=== PATIENT | male | born 1950 | race African-American/Black ===

== ENCOUNTER 2020-09-15 13:58 | Emergency (ER) | payer MEDICAID, MEDICARE ==
[~2020-09-15] VITALS: Ht 182.9 cm; Wt 72.7 kg
[~2020-09-15 13:58] MED LIST: ACET325T9 PO; AMLO-186 PO; ASPI-482 PO; CARB-183 PO; CLOP75TA PO; CYCL10TA2 PO; Carbidopa/Levodopa PO; FERR325T14 PO; FLUDROCORTISONE ACETATE PO; HYDR-3107 PO; HYDR5TAB11 PO; ISOS30TA68 PO; LEVO500T59 PO; LEVO50TA5 PO; LEVO75TA5 PO; LEVO88TA70 PO; METO-269 PO; METR500T PO; NAPR500T8 PO; OXYC1TAB15 PO; POTA20TA84 PO; TAMS0.4C97 PO; cyclobenzaprine; synthroid
[2020-09-15 14:52] VITALS: BP 147/78
[2020-09-15] MEDS ORDERED: NEOMY/BACITR/POLYMYXIN OINT PACKET. TP ONE (15:00)
[2020-09-15] MEDS ORDERED: CEPHALEXIN 250 MG CAPSULE. PO ONE (15:15)
[2020-09-15] MEDS ORDERED: LIDOCAINE 2%/EPI 1:100,000 20 ML VIAL. INJ ONE (15:15)
[2020-09-15] MEDS ORDERED: DIPH,PERTUSS(ACELL),TET VAC/PF 0.5 ML SYRINGE. VAX IM ONE (15:15)
--- NOTE | 2020-09-15 15:19 | RAD ---
Exam: Right hand 3 views INDICATION: Middle finger injury, concern for fracture TECHNIQUE: Frontal, lateral and oblique views of the right foot Comparisons: None FINDINGS: There is a obliquely oriented fracture through the distal phalanx of the third digit. Mild surroundin g soft tissue swelling. Joint spaces are well-maintained. Bone mineralization is normal. IMPRESSION: Obliquely oriented fracture through the distal phalanx of the third digit. Electronically signed by: Rosalee Osorio MD (09/15/2020 3:17 PM) SCOUT
[2020-09-15] MEDS ORDERED: CEPH500C PO (16:38)
[2020-09-15] MEDS ORDERED: HYDR-2761 PO (16:38)
--- NOTE | 2020-09-15 16:40 | PHYS DOC ---
Past Medical History Past Medical History: CHF, Hypertension, Hypothyroid, Other Additional Past Medical Histor: chronic back pain, head injury Past Surgical History: No Surgical History Smoking Status: Never Smoker Alcohol Use: None Drug Use: None General Adult EDM: Chief Complaint: FINGER INJURY HPI: HPI: Patient is a 70 year old male presents with injury to distal end of right middle finger including nail after accidentally getting finger caught in his truck door while exiting. Reports the door "slammed" on his finger. Injury occurred approximately 1 hour prior to arrival. Patient denies use of blood thinners. Reports bleeding has been controlled with direct pressure on wound. Reports nail is avulsed. Reports last tetanus > 5 years ago. Review of Systems: Review of Systems: Constitutional: Denies fever or chills Musculoskeletal: Denies back pain ; reports pain and deformity to right middle finger Integument: Reports laceration to distal end of right middle finger with nail avulsion Neurologic: Denies headache, focal weakness or sensory changes Complete systems were reviewed and found to be within normal limits, except as documented in this note. Heart Score: C/O Chest Pain: N/A Current Medications: Current Medications Medications (Trade) Dose Ordered Sig/Theresa Start Time Stop Time Status Last Admin Dose Admin Cephalexin HCl (Keflex) 500 mg 1X ONCE 09/15/20 15:15 09/15/20 15:16 DC 09/15/20 15:24 500 MG Diphtheria/ Tetanus/Acell Pertussis (ADACEL TDap SYRINGE) 0.5 ml ONCE ONCE 09/15/20 15:15 09/15/20 15:16 DC 09/15/20 15:26 0.5 ML Lidocaine/ Epinephrine (LIDOCAINE 2%-EPI 1:100,000 multi-dose) 20 ml 1X ONCE 09/15/20 15:15 09/15/20 15:16 DC 09/15/20 15:24 20 ML Neomycin/ Polymyxin/ Bacitracin (Triple Antibiotic Ointment) 1 pkt 1X ONCE 09/15/20 15:00 09/15/20 15:01 DC 09/15/20 15:24 1 PKT Allergies: Allergies: Allergies Coded Allergies Type Severity Reaction Last Updated Verified No Known Drug Allergies 06/14/13 No Physical Exam: PE: Constitutional: Well developed, well nourished, uncomfortable, non-toxic appearance HENT: Normocephalic, atraumatic Eyes: Conjunctiva normal, no discharge Neck: Normal range of motion, supple Lungs & Thorax: Equal chest rise and fall, no respiratory distress Skin: Warm, dry, no erythema, 3cm laceration crossing nailbed of right 3rd finger with avulsion of nail. Extremities: Laceration/nailbed injury of right middle finger as above, pain with any ROM but flexion and extension of finger intact, right radial pulse +2, CR of right 3rd finger < 2 sec Neurologic: Alert and oriented X 3, no focal deficits noted Psychologic: Affect normal, judgement normal Current Patient Data: Vital Signs: Vital Signs Date Time Temp Pulse Resp B/P (MAP) Pulse Ox O2 Delivery O2 Flow Rate FiO2 09/15/20 14:52 97.7 84 20 147/78 (101) 97 Room Air 97.7 EKG: EKG: [] Radiology/Procedures: Radiology/Procedures: PROCEDURE: HAND RIGHT 3V Exam: Right hand 3 views INDICATION: Middle finger injury, concern for fracture TECHNIQUE: Frontal, lateral and oblique views of the right foot Comparisons: None FINDINGS: There is a obliquely oriented fracture through the distal phalanx of the third digit. Mild surrounding soft tissue swelling. Joint spaces are well-maintained. Bone mineralization is normal. IMPRESSION: Obliquely oriented fracture through the distal phalanx of the third digit. Electronically signed by: Rosalee Osorio MD (09/15/2020 3:17 PM) [facility] Course & Med Decision Making: Course & Med Decision Making Pertinent Imaging studies reviewed. (See chart for details) Patient presents with distal finger fracture/partial avulsion of nail. XR with confirmation of distal phalanx fracture. Finger block performed. Wound cleaned and then copiously irrigated. Empiric antibiotic initiated. Suture repair of laceration and nail performed. Wound dressed and aluminum finger splint applied. Tetanus updated. Patient stable for discharge home with outpatient follow-up with PCP/hand surgeon. Hand surgeon referral provided.. Discussed findings and plan with patient and family, who acknowledge understanding and agreement. Opal Disclaimer: Opal Disclaimer: This electronic medical record was generated, in whole or in part, using a voice recognition dictation system. Splinting Splinting : Location: Right middle finger Pre-Made Type: metal (aluminum finger splint) Pre-Proc Neuro Vasc Exam: normal Post-Proc Neuro Vasc Exam: normal, unchanged from pre-exam Laceration/Wound Repair Laceration/Wound Repair : Wound Location: upper extremity (right middle finger) Wound's Depth, Shape: linear, nail-avulsed Wound Length (cm): 3 Wound Explored: no foreign body removed Irrigated w/ Saline (ccs): 200 Anesthesia: Lidocaine w/ Epi (2%) Volume Anesthetic (ccs): 2 Wound Debrided: moderate Wound Repaired With: sutures Suture Size/Type: 5:0, nylon Number of Sutures: 6 Sterile Dressing Applied?: Yes Splint Applied?: Yes Type of Splint Applied: aluminum finger splint Progress Verbal consent obtained. Hand hygiene utilized. Time out performed. 4 nerve digital block to right middle finger performed with 2% Lidocaine via 25g hypode rmic needle x 2mls via dorsal approach after area cleansed with ChloraPrep. Appropriate anesthesia obtained and wound moderate debridement performed with Chlorhexidine surgical sponge and then wound copiously irrigated with pressurized normal saline x 200mls. Nail avulsion repaired with placement of nail back underneath nail fold. Nail required suturing in place in addition to repair of laceration. A total of 6 simple interrupted 5-0 Nylon sutures placed. Triple antibiotic ointment applied followed by sterile dressing and aluminum finger splint. Patient tolerated procedure well and without difficulty. Departure Departure Impression: Primary Impression: Fracture of distal phalanx of finger of right hand Additional Impression: Avulsion of fingernail of right hand Disposition: 01 HOME / SELF CARE / HOMELESS Condition: STABLE Referrals: ALEJANDRINA VASQUEZ MD (PCP) Patient Instructions: Finger Fracture, [id number], Nail Avulsion Injury, Sutured Wound Care, [id number] Additional Instructions: Do not soak your wound. You may shower. Clean wound daily with soap and water. Change dressing 2 times daily. Use over the counter antibiotic ointment with each dressing change. Maintain aluminum finger splint immediately after cleaning wound. Sutures need to be removed in 10-14 days. Present to hand surgeon for removal. You may also present to the ED but it will be an additional visit/charge. Call Dr. Karen Vázquez (Hand surgery) to make an appointment to be seen and evaluated Location: [address] [place] [address], [facility], [place] Scripts Hydrocodone Bit/Acetaminophen (HYDROCODONE-APAP 5-325 ) 1 Tab Tablet 0.5-1 TAB PO PRN Q6HRS PRN for PAIN, #10 TAB 0 Refills Prov: SAIRA RIVERA DO 09/15/20 Cephalexin (CEPHALEXIN) 500 Mg Capsule 1 CAP PO QID for 10 Days, #40 CAP Prov: SAIRA RIVERA DO 09/15/20 SAIRA RIVERA DO Sep 15, 2020 16:40
== END 2020-09-15 16:55 | disposition home or self-care (01) ==
LOC: ER 13:58
DX: S62.632A Displaced fracture of distal phalanx of right middle finger, initial encounter for closed fracture (principal); S61.212A Laceration without foreign body of right middle finger without damage to nail, initial encounter; E03.9 Hypothyroidism, unspecified; I11.0 Hypertensive heart disease with heart failure; I50.9 Heart failure, unspecified; G89.29 Other chronic pain; W23.0XXA Caught, crushed, jammed, or pinched between moving objects, initial encounter; Y93.89 Activity, other specified; Y92.89 Other specified places as the place of occurrence of the external cause; Y99.8 Other external cause status
CPT/HCPCS: 12002; 73130; 90471; 90715; 99283; J3490

== ENCOUNTER 2020-10-10 10:30 | Emergency (ER) | payer MEDICARE ==
[~2020-10-10] VITALS: Ht 182.9 cm; Wt 70.9 kg
[~2020-10-10 10:30] MED LIST changes: +CEPH500C PO; +HYDR-2761 PO
[2020-10-10] MEDS ORDERED: guaiFENesin/CODEINE 100mg/10mg 5 ML LIQUID PO STA (10:46)
--- NOTE | 2020-10-10 10:52 | PHYS DOC ---
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 Patient denies any chest pain, febrile shortness of breath. Patient received Sproxil [email or web address] vaccine last dose August 2020 (GRZEGORZ GREER DEODORIZER OPERATOR) Review of Systems: Review of Systems: Constitutional: Denies fever or chills. [] Eyes: Denies change in visual acuity. [] HENT: Reports sore throat. Denies nasal congestion Respiratory: Reports cough, denies shortness of breath. [] Cardiovascular: Denies chest pain or edema. [] GI: Denies abdominal pain, nausea, vomiting, bloody stools or diarrhea. [] : Denies dysuria. [] Musculoskeletal: Denies back pain or joint pain. [] Integument: Denies rash. [] Neurologic: Denies headache, focal weakness or sensory changes. [] Psychiatric: Denies depression or anxiety. [] (GRZEGORZ GREER DEODORIZER OPERATOR) Heart Score: C/O Chest Pain: N/A Risk Factors: Risk Factors: DM, Current or recent (<one month) smoker, HTN, HLP, family history of CAD, obesity. Risk Scores: Score 0 - 3: 2.5% MACE over next 6 weeks - Discharge Home Score 4 - 6: 20.3% MACE over next 6 weeks - Admit for Clinical Observation Score 7 - 10: 72.7% MACE over next 6 weeks - Early Invasive Strategies (GRZEGORZ GREER DEODORIZER OPERATOR) Current Medications: Current Medications Medications (Trade) Dose Ordered Sig/Theresa Start Time Stop Time Status Last Admin Dose Admin Guaifenesin/ Codeine Phosphate (Robitussin Ac) 5 ml 1X STAT 10/10/20 10:46 10/10/20 10:47 UNV (GRZEGORZ GREER DEODORIZER OPERATOR) Allergies: Allergies: Allergies Coded Allergies Type Severity Reaction Last Updated Verified No Known Drug Allergies 06/14/13 No (GRZEGORZ GREER Shakeel DEODORIZER OPERATOR) Physical Exam: PE: Constitutional: Well developed, well nourished, no acute distress, non-toxic appearance. [] HENT: Normocephalic, atraumatic, bilateral external ears normal, oropharynx moist, no oral exudates, nose normal. [] Posterior pharynx with mild erythema no exudate Eyes: PERRLA, EOMI, conjunctiva normal, no discharge. [] Neck: Normal range of motion, no tenderness, supple, no stridor. [] Cardiovascular:Heart rate regular rhythm, no murmur [] Lungs & Thorax: Bilateral breath sounds clear to auscultation [] Abdomen: Bowel sounds normal, soft, no tenderness, no masses, no pulsatile masses. [] Skin: Warm, dry, no erythema, no rash. [] Back: No tenderness, no CVA tenderness. [] Extremities: No tenderness, no cyanosis, no clubbing, ROM intact, no edema. [] Neurologic: Alert and oriented X 3, normal motor function, normal sensory function, no focal deficits noted. [] Psychologic: Affect normal, judgement normal, mood normal. [] (GRZEGORZ GREER Shakeel DEODORIZER OPERATOR) Current Patient Data: Vital Signs: Vital Signs Date Time Temp Pulse Resp B/P (MAP) Pulse Ox O2 Delivery O2 Flow Rate FiO2 10/10/20 10:45 98.6 71 20 137/67 (90) 96 Room Air 98.6 (GRZEGORZ GREER Shakeel DEODORIZER OPERATOR) EKG: EK interpreted by Dr. Louis sinus rhythm with inverted T waves on V1, V4, V5 no STEMI EKG is similar to the one done December 04 2015 (MADISONRolandoGRZEGORZ Shakeel DEODORIZER OPERATOR) Radiology/Procedures: Radiology/Procedures: []PROCEDURE: PORTABLE CHEST 1V XR CHEST 1V History: Reason: cough / Spl. Instructions: / History: Comparison: December 04, 2015 Findings: Patchy left basilar opacity. No pleural effusion. No pneumothorax. Right apical bullous disease, unchanged. Prior median sternotomy. Unchanged heart size. Impression: 1. Patchy left basilar opacity, may represent atelectasis or developing infiltrate. If persistent clinical concern, recommend follow-up. Electronically signed by: Shai Patel DO (10/10/2020 11:08 AM) [id number] DICTATED and SIGNED BY: SHAI PATEL DO DATE: 10/10/20 [id number] (GRZEGORZ GREER APRN) Course & Med Decision Making: Course & Med Decision Making Pertinent Labs and Imaging studies reviewed. (See chart for details) This is a 70-year-old male patient presenting today with cough and sore throat for 3 days. Vitals are stable, patient is afebrile, O2 sats 96% on room air, heart rate 71. Blood pressure is very stable in the 130s over 60s CBC with a normal WBC, hemoglobin and hematocrit are low but this is patient's baseline. Creatinine 1.4 patient has history of kidney disease. BUN is normal. Chest x-ray shows atelectasis or developing infiltrate Patient was given Decadron, started on Rocephin in the ED. Feeling better. Patient was discharged home on augmentin, prednisone, tessalon perles and albuterol inhaler. Instructed to follow-up with the PCP in the course of this week (GRZEGORZ GREER APRN) Course & Med Decision Making I oversaw on the above date of service of this patient. This patient was evaluated, examined, treated, and dispositioned from the emergency department by the mid-level practitioner. Although I was working at the time and available for consultation, no assistance was requested and I did not see or immediately direct the care of this patient. I reviewed note and agree to findings, plan of care, and disposition as stated. Electronically signed, Alyssa Louis DO (ALYSSA LOUIS DO) Opal Disclaimer: Opal Disclaimer: This electronic medical record was generated, in whole or in part, using a voice recognition dictation system. (GRZEGORZ GREER APRN) Departure Departure Impression: Primary Impression: Acute bronchitis Qualified Codes: J20.9 - Acute bronchitis, unspecified Additional Impression: Acute pharyngitis Qualified Codes: J02.9 - Acute pharyngitis, unspecified Disposition: 01 HOME / SELF CARE / HOMELESS Condition: STABLE Referrals: UNKNOWN PCP NAME (PCP) Follow-up with your doctor in the course of this week Patient Instructions: Acute Bronchitis, [id number], Viral Pharyngitis Additional Instructions: You were evaluated in the emergency room. Please take the prescribed medi cations as ordered. Please follow-up with your primary care doctor in the course of this week. Come back to the ED at any point symptoms worsen Scripts Prednisone (PREDNISONE) 50 Mg Tablet 1 TAB PO DAILY, #5 TAB Prov: GRZEGORZ GREER APRN 10/10/20 Benzonatate (TESSALON PERLE) 100 Mg Capsule 1 CAP PO TID, #30 CAP Prov: GRZEGORZ GREER APRN 10/10/20 Albuterol Sulfate (Proair Hfa) 8.5 Gm Hfa.aer.ad 2 PUFF IH PRN Q4-6HRS PRN for wheezing, #1 INHALER 0 Refills Prov: GRZEGORZ GREER APRN 10/10/20 Amoxicillin/Potassium Clav (AUGMENTIN 875-125 TABLET) 1 Each Tablet 1 TAB PO BID for 10 Days, #20 TAB 0 Refills Prov: GRZEGORZ GREER APRN 10/10/20 GRZEGORZ GREER APRN Oct 10, 2020 10:52 ALYSSA LOUIS DO Oct 10, 2020 15:43
[2020-10-10 10:56] LABS: BASO # 0.1 x10^3/uL (0.0-0.2); BASO % 1 % (0-3); EOS # 0.4 x10^3/uL (0.0-0.7); EOS % 4 % (0-3); HEMATOCRIT 37.3 % (39.0-53.0); HEMOGLOBIN 12.6 g/dL (13.0-17.5); LYMPH % 21 % (24-48); MEAN CORPUSCULAR HEMOGLOBIN 31 pg (25-35); MEAN CORPUSCULAR HGB CONC 34 g/dL (31-37); MEAN CORPUSCULAR VOLUME 92 fL (79-100); MONO # 0.7 x10^3/uL (0.0-1.1); MONO % 7 % (0-9); NEUT # 6.5 x10^3/uL (1.8-7.7); NEUT % 67 % (31-73); PLATELET COUNT 219 x10^3/uL (140-400); RED BLOOD COUNT 4.05 x10^6/uL (4.30-5.70); RED CELL DISTRIBUTION WIDTH 14.1 % (11.5-14.5); WHITE BLOOD COUNT 9.8 x10^3/uL (4.0-11.0)
[2020-10-10 11:07] LABS: CALCIUM 8.5 mg/dL (8.5-10.1); CREATININE 1.4 mg/dL (0.7-1.3); GFR 60.3; POTASSIUM 3.5 mmol/L (3.5-5.1)
--- NOTE | 2020-10-10 11:11 | RAD ---
XR CHEST 1V History: Reason: cough / Spl. Instructions: / History: Comparison: December 04, 2015 Findings: Patchy left basilar opacity. No pleural effusion. No pneumothorax. Right apical bullous disease, unch anged. Prior median sternotomy. Unchanged heart size. Impression: 1. Patchy left basilar opacity, may represent atelectasis or developing infiltrate. If persistent cl inical concern, recommend follow-up. Electronically signed by: Shai Patel DO (10/10/2020 11:08 AM) [id number]
[2020-10-10 11:15] LABS: ALBUMIN 3.7 g/dL (3.4-5.0); ALBUMIN/GLOBULIN RATIO 1.1 (1.0-1.7); MAGNESIUM 1.7 mg/dL (1.8-2.4); TOTAL BILIRUBIN 0.9 mg/dL (0.2-1.0)
--- NOTE | 2020-10-10 11:22 | EKG ---
[facility] [address] [place] [address] Test Date: 2020-10-10 Test Time: 10:40:20 Pat Name: HUE UNDERWOOD Department: Room: Gender: M [employer] Mate G: : 1950 Requested By: GRZEGORZ GREER Order Number: [id number] Reading MD: Antonio Fields Measurements Intervals [place] Rate: 74 P: 38 DE: 126 QRS: 48 QRSD: 96 T: 145 QT: 454 QTc: 504 Interpretive Statements SINUS ARRHYTHMIA T ABNORMALITY IN ANTERIOR LEADS LATERAL LEADS PROLONGED QT NON SPECIFIC ST DEPRESSION ABNORMAL ECG Electronically Signed On 10-12-2020 12:00:41 CDT by Antonio Fields
[2020-10-10] MEDS ORDERED: ALBU2.5V8 IH (12:08)
[2020-10-10] MEDS ORDERED: BENZ100C PO (12:08)
[2020-10-10] MEDS ORDERED: PRED50TA PO (12:08)
[2020-10-10] MEDS ORDERED: AMOX1TAB61 PO (12:08)
[2020-10-10 12:09] VITALS: BP 126/70
[2020-10-10] MEDS ORDERED: cefTRIAXone IV Push 1 GM VIAL. IVP ONE (12:30)
== END 2020-10-10 12:38 | disposition home or self-care (01) ==
LOC: ER 10:30
DX: J20.9 Acute bronchitis, unspecified (principal); J02.9 Acute pharyngitis, unspecified; I11.0 Hypertensive heart disease with heart failure; I50.9 Heart failure, unspecified; E03.9 Hypothyroidism, unspecified; G89.29 Other chronic pain; Z95.1 Presence of aortocoronary bypass graft
CPT/HCPCS: 71045; 80053; 83735; 83880; 84145; 84443; 84484; 85025; 93005; 96374; 99284; J0696

== ENCOUNTER 2020-11-01 15:18 | Emergency (ER) | payer MEDICARE ==
[~2020-11-01] VITALS: Ht 182.9 cm; Wt 160.0 kg
[~2020-11-01 15:18] MED LIST changes: +ALBU2.5V8 IH; +AMOX1TAB61 PO; +BENZ100C PO; +PRED50TA PO
[2020-11-01 19:41] LABS: BASO # 0.1 x10^3/uL (0.0-0.2); BASO % 1 % (0-3); EOS # 0.4 x10^3/uL (0.0-0.7); EOS % 10 % (0-3); HEMATOCRIT 35.5 % (39.0-53.0); HEMOGLOBIN 11.9 g/dL (13.0-17.5); LYMPH # 2.3 x10^3/uL (1.0-4.8); LYMPH % 53 % (24-48); MEAN CORPUSCULAR HEMOGLOBIN 31 pg (25-35); MEAN CORPUSCULAR HGB CONC 33 g/dL (31-37); MEAN CORPUSCULAR VOLUME 93 fL (79-100); MONO # 0.4 x10^3/uL (0.0-1.1); MONO % 10 % (0-9); NEUT # 1.1 x10^3/uL (1.8-7.7); NEUT % 26 % (31-73); PLATELET COUNT 221 x10^3/uL (140-400); RED BLOOD COUNT 3.83 x10^6/uL (4.30-5.70); RED CELL DISTRIBUTION WIDTH 14.5 % (11.5-14.5); WHITE BLOOD COUNT 4.3 x10^3/uL (4.0-11.0)
[2020-11-01 19:53] LABS: CALCIUM 9.2 mg/dL (8.5-10.1); CREATININE 1.1 mg/dL (0.7-1.3); GFR 79.6; POTASSIUM 3.8 mmol/L (3.5-5.1)
[2020-11-01 20:00] LABS: ALBUMIN/GLOBULIN RATIO 1.2 (1.0-1.7); TOTAL BILIRUBIN 0.7 mg/dL (0.2-1.0); TOTAL PROTEIN 7.3 g/dL (6.4-8.2)
[2020-11-01] MEDS ORDERED: BENZONATATE 100 MG CAPSULE. PO ONE (20:00)
--- NOTE | 2020-11-01 20:27 | RAD ---
Chest AP portable at 1952: Reason for examination: Cough. Comparison is made to previous study dated 10/10/2020. Postop changes seen in the sternum and mediastinum. The heart size is normal. Mediastinum is otherwis e unremarkable. Lung montengero are clear. No acute bony abnormalities are evident. IMPRESSION: No acute cardiopulmonary disease evident. Electronically signed by: Meme Marte MD (11/01/2020 8:24 PM) MEÑO
[2020-11-01] MEDS ORDERED: DEXAMETHASONE SOD PHOS 20 MG/5 ML VIAL. IV ONE (20:30)
[2020-11-01] MEDS ORDERED: IPRATRPIUM/ALBUTEROL 0.5/2.5MG 3 ML NEBU. NEB ONE (20:30)
--- NOTE | 2020-11-01 21:08 | PHYS DOC ---
Past Medical History Past Medical History: CHF, Hypertension, Hypothyroid, Other Additional Past Medical Histor: chronic back pain, head injury Past Surgical History: No Surgical History Smoking Status: Former Smoker Alcohol Use: None Drug Use: None General Adult EDM: Chief Complaint: COUGH HPI: HPI: 70 yo M PMH past medical history of CAD on Plavix (3VD), hypothyroidism, hy pertension and BPH, presents the ED with complaints of productive cough and sore throat for the past month. Patient states he was seen here few weeks ago and prescribed antibiotics somewhat improved his symptoms. EMR was reviewed and patient was seen in the ED October 10 and prescribed Augmentin, prednisone, albuterol and Tessalon Perles. Vaccinated for Covid in August 2020. at bedside, (patient consents to his/her/their knowledge and involvement in pts' medical care), reports laryngitis symptoms when patient symptoms first started. History of Covid. Patient has a PCP appointment in the morning. EMR was reviewed and patient has a history of triple-vessel disease with positive stress in 2015-echo at that time a normal EF. Review of Systems: Review of Systems: Constitutional: Denies fever or chills. [] Eyes: Denies change in visual acuity. [] HENT: Denies nasal congestion or rhinorrhea Respiratory: Denies hemoptysis or increased work of breathing Cardiovascular: Denies chest pain or edema. [] GI: Denies abdominal pain, nausea, vomiting,or diarrhea. [] : Denies dysuria or hematuria Musculoskeletal: Denies back pain or joint pain. [] Integument: Denies rash. Or diaphoresis Neurologic: Denies headache, focal weakness or sensory changes. [] Endocrine: Denies polyuria or polydipsia. [] Lymphatic: Denies swollen glands. [] Psychiatric: Denies depression or anxiety. [] Heart Score: C/O Chest Pain: No Risk Factors: Risk Factors: DM, Current or recent (<one month) smoker, HTN, HLP, family history of CAD, obesity. Risk Scores: Score 0 - 3: 2.5% MACE over next 6 weeks - Discharge Home Score 4 - 6: 20.3% MACE over next 6 weeks - Admit for Clinical Observation Score 7 - 10: 72.7% MACE over next 6 weeks - Early Invasive Strategies Current Medications: Current Medications Medications (Trade) Dose Ordered Sig/Theresa Start Time Stop Time Status Last Admin Dose Admin Albuterol/ Ipratropium (Duoneb) 9 ml 1X ONCE 11/01/20 20:30 11/01/20 20:31 DC Benzonatate (Tessalon Perle) 100 mg 1X ONCE 11/01/20 20:00 11/01/20 20:05 DC 11/01/20 20:21 100 MG Dexamethasone Sodium Phosphate (Decadron) 10 mg 1X ONCE 11/01/20 20:30 11/01/20 20:31 DC 11/01/20 20:30 10 MG Allergies: Allergies: Allergies Coded Allergies Type Severity Reaction Last Updated Verified No Known Drug Allergies 06/14/13 No Physical Exam: PE: Constitutional: Well developed, well nourished, no acute distress, non-toxic appearance. HENT: Normocephalic, atraumatic, Eyes: EOMI, conjunctiva normal, no discharge. Neck: Normal range of motion, supple, Cardiovascular: S1/2 present, regular rhythm Lungs & Thorax: Speaking in full sentences, bilateral equal chest rise, no tachypnea or increased work of breathing, active cough in ED, no tachypnea, is able to speak in full sentences but coughs frequently, expiratory wheezing worse at bases >> upper airway Abdomen: soft, no tenderness, Skin: Warm, dry, Extremities: No tenderness, no cyanosis, no unilateral lower extremity edema Neurologic: Alert and oriented X 3, normal motor function, normal sensory function, no focal deficits noted. [] Psychologic: Affect normal, judgement normal, mood normal. [] Current Patient Data: Labs: Laboratory Tests Test 11/01/20 19:30 White Blood Count 4.3 x10^3/uL (4.0-11.0) Red Blood Count 3.83 x10^6/uL (4.30-5.70) L Hemoglobin 11.9 g/dL (13.0-17.5) L Hematocrit 35.5 % (39.0-53.0) L Mean Corpuscular Volume 93 fL (79-100) Mean Corpuscular Hemoglobin 31 pg (25-35) Mean Corpuscular Hemoglobin Concent 33 g/dL (31-37) Red Cell Distribution Width 14.5 % (11.5-14.5) Platelet Count 221 x10^3/uL (140-400) Neutrophils (%) (Auto) 26 % (31-73) L Lymphocytes (%) (Auto) 53 % (24-48) H Monocytes (%) (Auto) 10 % (0-9) H Eosinophils (%) (Auto) 10 % (0-3) H Basophils (%) (Auto) 1 % (0-3) Neutrophils # (Auto) 1.1 x10^3/uL (1.8-7.7) L Lymphocytes # (Auto) 2.3 x10^3/uL (1.0-4.8) Monocytes # (Auto) 0.4 x10^3/uL (0.0-1.1) Eosinophils # (Auto) 0.4 x10^3/uL (0.0-0.7) Basophils # (Auto) 0.1 x10^3/uL (0.0-0.2) Sodium Level 138 mmol/L (136-145) Potassium Level 3.8 mmol/L (3.5-5.1) Chloride Level 102 mmol/L (98-107) Carbon Dioxide Level 28 mmol/L (21-32) Anion Gap 8 (6-14) Blood Urea Nitrogen 8 mg/dL (8-26) Creatinine 1.1 mg/dL (0.7-1.3) Estimated GFR (Cockcroft-Gault) 79.6 BUN/Creatinine Ratio 7 (6-20) Glucose Level 89 mg/dL (70-99) Calcium Level 9.2 mg/dL (8.5-10.1) Total Bilirubin 0.7 mg/dL (0.2-1.0) Aspartate Amino Transferase (AST) 21 U/L (15-37) Alanine Aminotransferase (ALT) 20 U/L (16-63) Alkaline Phosphatase 82 U/L (46-116) Creatine Kinase 170 U/L (39-308) Troponin I Quantitative < 0.017 ng/mL (0.000-0.055) MO-Mdk-Y-Type Natriuretic Peptide 312 pg/mL (0-124) H Total Protein 7.3 g/dL (6.4-8.2) Albumin 4.0 g/dL (3.4-5.0) Albumin/Globulin Ratio 1.2 (1.0-1.7) Laboratory Tests 11/01/20 19:30 Laboratory Tests 11/01/20 19:30 Vital Signs: Vital Signs Date Time Temp Pulse Resp B/P (MAP) Pulse Ox O2 Delivery O2 Flow Rate FiO2 11/01/20 19:16 97.8 88 22 142/94 (110) 98 Room Air 97.8 EKG: EKG: Sinus rhythm 60 bpm, no axis deviation, QTC 496, T wave in version V2 and V3, no ST elevation or ST depression, no active chest pain Radiology/Procedures: Radiology/Procedures: IMAGING REPORT Signed PATIENT: HUE UNDERWOOD ACCOUNT: [id number] : 1950 LOCATION: ER AGE: 70 SEX: M EXAM STATUS: REG ER ORD. PHYSICIAN: JOEY MARIN DO REASON: cough PROCEDURE: PORTABLE CHEST 1V Chest AP portable at 2: Reason for examination: Cough. Comparison is made to previous study dated 10/10/2020. Postop changes seen in the sternum and mediastinum. The heart size is normal. Mediastinum is otherwise unremarkable. Lung [place] are clear. No acute bony abnormalities are evident. IMPRESSION: No acute cardiopulmonary disease evident. Electronically signed by: Holly Morton MD (11/01/2020 8:24 PM) [facility] DICTATED and SIGNED BY: HOLLY MORTON MD DATE: 11/01/[id number] 0 Course & Med Decision Making: Course & Med Decision Making Pertinent Labs and Imaging studies reviewed. (See chart for details) COVID-19 CRITERIA: The patient was evaluated during the global COVID-19 pandemic, and that diagnosis was suspected/considered upon their initial presentation. Their evaluation, treatment and testing was consistent with rrent guidelines for patients who present with complaints or symptoms that may be related to COVID-19. Concern for productive cough in the setting of COPD, Covid test pending. Rapid strep negative. Chest x-ray with no infiltrate. Patient improved with steroids and breathing treatments and states he feels well to go home. I did offer admission for cardiology evaluation and consider echocardiogram. Patient declined reporting he has a primary care physician tomorrow in the morning. Patient with steady gait with no increased work of breathing with activity. Will discharge home with strict ED return precautions were given for increased work of breathing, orthopnea, hemoptysis, shortness of breath, chest pain, neurologic deficits or syncope. Encouraged urgent outpatient follow-up with PMD and pulmonology for definitive management of COPD. Life-threatening processes were considered but are low suspicion at this time, given history, physical exam and ED workup. Pt was educated on all prescription medications and adverse effects. All patient's questions were answered and pt was stable at time of discharge. Life/limb-threatening differential includes but is not limited to, foreign body, infection/sepsis, congestive heart failure or pulmonary edema, lung cancer intrathoracic mass, bronchoconstriction, asthma/COPD/lung disease exacerbation, pneumothorax or hemothorax, pulmonary emboli, autoimmune/neurologic disease or toxidrome. I have spoken with the patient and/or caregivers. I explained the patient's condition, diagnoses and treatment plan based on the information available to me at this time. I have answered the patient and/or caregiver's questions and addressed any concerns. The patient and/or caregivers have a good understanding of patient's diagnosis, condition and treatment plan as can be expected at this point. Vital signs have been stable. Patient's condition is stable and appropriate for discharge from the emergency department. Patient will pursue further outpatient evaluation with primary care physician or other designated or consulting physician as outlined in the discharge instructions. The patient and/or caregivers are agreeable to this plan of care and follow-up instructions have been explained in detail. The patient and/or ca regivers have received these instructions in written form and have expressed an understanding of the discharge instructions. The patient and/or caregivers are aware that any significant change of condition or worsening of symptoms should prompt immediate return to this or the closest emergency department or call to 911. Opal Disclaimer: Opal Disclaimer: This electronic medical record was generated, in whole or in part, using a voice recognition dictation system. Departure Departure Impression: Primary Impression: Person under investigation for COVID-19 Additional Impression: COPD with exacerbation Disposition: HOME / SELF CARE / HOMELESS Condition: STABLE Referrals: UNKNOWN PCP NAME (PCP) Follow-up with your primary care physician in 24 to 48 hours OR FOLLOW UP WITH FAMILY MEDICINE: [address] [place] [address] Patient Instructions: Chronic Obstructive Pulmonary Disease Exacerbation, Cough, Adult Additional Instructions: Return to ED immediately if your oxygen level drops below 90% (purchase a pulse oximetry at a medical supply store), difficulties breathing including rapid breathing or increased work of breathing (skin sucking under ribs), chest pain or stroke-like symptoms (facial droop, speech changes, arm/leg weakness). FOLLOW UP WITH PULMONOLOGY: FOR DEFINITIVE MANAGEMENT of [facility] [address] [place] [address] EMERGENCY DEPARTMENT GENERAL DISCHARGE INSTRUCTIONS Thank you for coming to [facility] Emergency Department (ED) today and trusting us with you care. We trust that you had a positive experience in our Emergency Department. If you wish to speak to the department management, you may call the Director at [phone]. YOUR FOLLOW UP INSTRUCTIONS ARE FOLLOWS: 1. Do you have a private Doctor? If you do not have a private doctor, please ask for a resource list of physicians or clinics that may be able to assist you with follow up care. 2. The Emergency Physicain has interpreted your x-rays. The X-Ray specialist will also review them. If there is a change in the findings, you will be notified in 48 hours when at all possible. 3. A lab test or culture has been done, your results will be reviewed and you will be notified if you need a change in treatment. ADDITIONAL INSTRUCTIONS AND INFORMATION: 1. Your care today has been supervised by a physician who is specially trained in emergency care. Many problems require more than one evaluation for a complete diagnosis and treatment. We recommend that you schedule your follow up appointment as recommended to ensure complete treatment of you illness or injury. If you are unable to obtain follow up care and continue to have a problem, or if your condition worsens, we recommend that you return to the ED. 2. We are not able to safely determine your condition over the phone nor are we able to give sound medical advice over the phone. For these safety reasons, if you call for medical advice we will ask you to come to the ED for further evaluation. 3. If you have any questions regarding these discharge instructions please call the ED at [phone]. SAFETY INFORMATION: In the interest of safety, wellness, and injury prevention; we encourage you to wear your sealbelt, if you smoke; quite smoking, and we encourage family to use a protective helmet for bicycling and other sporting events that present an increased risk for head injury. IF YOUR SYMPTOMS WORSEN OR NEW SYMPTOMS DEVELOP, OR YOU HAVE CONCERNS ABOUT YOUR CONDITION; OR IF YOUR CONDITION WORSENS WHILE YOU ARE WAITING FOR YOUR FOLLOW UP APPOINTMENT; EITHER CONTACT YOUR PRIMARY CARE DOCTOR, THE PHYSICIAN WHOSE NAME AND NUMBER YOU WERE GIVEN, OR RETURN TO THE ED IMMEDIATELY. Scripts Benzonatate (TESSALON PERLE) 100 Mg Capsule 1 CAP PO TID for cough, #21 CAP Prov: JOEY MARIN DO 11/01/20 Albuterol Sulfate (VENTOLIN HFA INHALER) 18 Gm Hfa.aer.ad 2 PUFF INH QID for FOR ASTHMA, #1 INHALER 0 Refills Prov: JOEY MARIN DO 11/01/20 Fluticasone Propionate (FLOVENT 44MCG HFA) 10.6 Gm Aer.w.adap 2 PUFF IH BID for 30 Days, #10.6 GM 2 Refills Prov: JOEY MARIN DO 11/01/20 Prednisone (PREDNISONE) 50 Mg Tablet 1 TAB PO DAILY, #5 TAB Prov: JOEY MARIN DO 11/01/20 Guaifenesin/Dextromethorphan (MUCINEX DM ER 600-30 MG TABLET) 1 Each Tab.er.12h 1 TAB PO PRN BID PRN for cough and congestion for 14 Days, #28 TAB 0 Refills Prov: JOEY MARIN DO 11/01/20 JOEY MARIN DO Nov 01, 2020 21:08
[2020-11-01] MEDS ORDERED: guaiFENesin DM 600/30MG 1 TAB TAB.ER.12H PO ONE (21:15)
[2020-11-01] MEDS ORDERED: BENZ100C PO (22:07)
[2020-11-01] MEDS ORDERED: VENTOLIN HFA18 GM INH (22:07)
[2020-11-01] MEDS ORDERED: GUAI-108 PO (22:07)
[2020-11-01] MEDS ORDERED: PRED50TA PO (22:07)
[2020-11-01] MEDS ORDERED: FLUT10.6 IH (22:07)
[2020-11-01 22:14] VITALS: BP 146/77
--- NOTE | 2020-11-02 05:27 | EKG ---
[facility] [address] [place] [address] Test Date: 2020-11-01 Test Time: 20:25:19 Pat Name: HUE UNDERWOOD Department: Room: Gender: M Court Transcriber: : 1950 Requested By: JOEY MARIN Order Number: [id number] Reading MD: Measurements Intervals [place] Rate: 68 P: 43 GA: 150 QRS: 48 QRSD: 88 T: 28 QT: 466 QTc: 496 Interpretive Statements SINUS RHYTHM T ABNORMALITY IN ANTERIOR LEADS PROLONGED QT ABNORMAL ECG RI6.02 No previous ECG available for comparison
--- NOTE | 2020-11-03 09:50 | NUR ---
IP: Attempted to contact pt concerning covid results. No answer, voicemail box is full.
== END 2020-11-01 22:44 | disposition home or self-care (01) ==
LOC: ER 15:18
DX: J44.1 Chronic obstructive pulmonary disease with (acute) exacerbation (principal); Z20.822 Contact with and (suspected) exposure to COVID-19; I11.0 Hypertensive heart disease with heart failure; I50.9 Heart failure, unspecified; E03.9 Hypothyroidism, unspecified; G89.29 Other chronic pain; Z87.891 Personal history of nicotine dependence
CPT/HCPCS: 36415; 71045; 80053; 82550; 83880; 84484; 85025; 87070; 87426; 87880; 93005; 94640; 96374; 99284; J1100; U0003; U0005

== ENCOUNTER 2021-01-20 14:52 | Emergency (ER) | payer MEDICARE ==
[~2021-01-20] VITALS: Ht 190.5 cm; Wt 70.0 kg
[~2021-01-20 14:52] MED LIST changes: +FLUT10.6 IH; +GUAI-108 PO; +VENTOLIN HFA18 GM INH
[2021-01-20 15:48] VITALS: BP 111/67
[2021-01-20] MEDS ORDERED: ORPHENADRINE CITRATE 60 MG/2 ML VIAL. IM ONE (16:15)
[2021-01-20] MEDS ORDERED: DEXAMETHASONE 4 MG TABLET PO ONE (16:15)
[2021-01-20] MEDS ORDERED: KETOROLAC 30 MG/ML VIAL. IM ONE (16:15)
[2021-01-20] MEDS ORDERED: ORPH100T PO (16:40)
[2021-01-20] MEDS ORDERED: PRED20TA PO (16:40)
[2021-01-20] MEDS ORDERED: LIDO700A21 TP (16:40)
--- NOTE | 2021-01-20 16:40 | PHYS DOC ---
Past Medical History Past Medical History: CHF, Hypertension, Hypothyroid, Other Additional Past Medical Histor: chronic back pain, head injury Past Surgical History: Coronary Bypass Surgery Smoking Status: Former Smoker Alcohol Use: None Drug Use: None General Adult EDM: Chief Complaint: BACK PAIN - NO INJURY HPI: HPI: Patient is a 70 year old [f__sex] who presents with [] Review of Systems: Review of Systems: Constitutional: Denies fever or chills Eyes: Denies redness or eye pain HENT: Denies nasal congestion or sore throat Respiratory: Denies cough or shortness of breath Cardiovascular: Denies chest pain or palpitations GI: Denies abdominal pain, nausea, or vomiting : Denies dysuria or hematuria Musculoskeletal: Denies back pain or joint pain Integument: Denies rash or skin lesions Neurologic: Denies headache, focal weakness or sensory changes Complete systems were reviewed and found to be within normal limits, except as documented in this note. Heart Score: C/O Chest Pain: N/A Current Medications: Current Medications Medications (Trade) Dose Ordered Sig/Theresa Start Time Stop Time Status Last Admin Dose Admin Dexamethasone (Decadron) 10 mg 1X ONCE 01/20/21 16:15 01/20/21 16:16 DC Ketorolac Tromethamine (Toradol 30mg Vial) 20 mg 1X ONCE 01/20/21 16:15 01/20/21 16:16 DC Orphenadrine Citrate (Norflex) 60 mg 1X ONCE 01/20/21 16:15 01/20/21 16:16 DC Allergies: Allergies: Allergies Coded Allergies Type Severity Reaction Last Updated Verified No Known Drug Allergies 06/14/13 No Physical Exam: PE: Constitutional: Well developed, well nourished, no acute distress, non-toxic appearance HENT: Normocephalic, atraumatic Eyes: PERRL, EOMI, conjunctiva normal, no discharge Neck: Normal range of motion, no tenderness, supple Lungs & Thorax: No respiratory distress, equal chest rise and fall Abdomen: Soft, no tenderness Skin: Warm, dry, no erythema, no rash Back: No tenderness, no CVA tenderness Extremities: No tenderness, ROM intact, no edema Neurologic: Alert and oriented X 3, normal motor function, normal sensory function, no focal deficits noted Psychologic: Affect normal, judgment normal Current Patient Data: Vital Signs: Vital Signs Date Time Temp Pulse Resp B/P (MAP) Pulse Ox O2 Delivery O2 Flow Rate FiO2 01/20/21 15:48 98.7 74 16 111/67 (82) 97 Room Air 98.7 EKG: EKG: [] Radiology/Procedures: Radiology/Procedures: [] Course & Med Decision Making: Course & Med Decision Making Patient stable for discharge with outpatient follow-up with PCP. Discussed findings and plan with patient, who acknowledges understanding and agreement. Opal Disclaimer: Opal Disclaimer: This electronic medical record was generated, in whole or in part, using a voice recognition dictation system. Departure Departure Impression: Primary Impression: Back pain Qualified Codes: M54.50 - Low back pain, unspecified; G89.29 - Other chronic pain Disposition: HOME / SELF CARE / HOMELESS Condition: STABLE Referrals: UNKNOWN PCP NAME (PCP) BRODY LAKHANI MD Patient Instructions: Back Pain, Adult, [id number] Additional Instructions: ICE area of discomfort 20 min on then leave off next 20 mins. Repeat several times daily as needed for next few days. Scripts Prednisone (PREDNISONE) 20 Mg Tablet 2 TAB PO DAILY for 4 Days, #8 TAB Start this prescription tomorrow, 01/21/21 Prov: SAIRA RIVERA DO 01/20/21 Lidocaine (Lidocaine PATCH ) 1 Each Adh..patch 1 EACH TP DAILY for FOR LOCAL PAIN, #30 PATCH REMOVE AFTER 12 HOURS Prov: SAIRA RIVERA DO 01/20/21 Orphenadrine Citrate (ORPHENADRINE CITRATE) 100 Mg Tablet.er 1 TAB PO BID PRN for MUSCLE PAIN, #14 TAB Prov: SAIRA RIVERA DO 01/20/21 SAIRA RIVERA DO Jan 20, 2021 16:40
== END 2021-01-20 17:02 | disposition home or self-care (01) ==
LOC: ER 14:52
DX: M54.59 Other low back pain (principal); G89.29 Other chronic pain; I11.0 Hypertensive heart disease with heart failure; I50.9 Heart failure, unspecified; E03.9 Hypothyroidism, unspecified; Z95.1 Presence of aortocoronary bypass graft
CPT/HCPCS: 96372; 99283; J1885; J2360

== ENCOUNTER 2021-03-16 14:07 | Emergency (ER) | payer MEDICARE ==
[~2021-03-16] VITALS: Ht 175.3 cm; Wt 72.0 kg
[~2021-03-16 14:07] MED LIST changes: +CYCL10TA19 PO; -CYCL10TA2 PO; +LIDO700A21 TP; +ORPH100T PO; +PRED20TA PO
--- NOTE | 2021-03-16 15:05 | PHYS DOC ---
Past Medical History Past Medical History: CAD, CHF, Hypertension, Hypothyroid, Other Additional Past Medical Histor: chronic back pain, head injury Past Surgical History: Other Smoking Status: Former Smoker Alcohol Use: None Drug Use: None General Adult EDM: Chief Complaint: MULTIPLE COMPLAINTS HPI: HPI: Patient is a 71-year-old male who presents to the emergency department reporting low back pain that has been going on for the past 2 months, reports it is not getting any better with the pain medications prescribed by his primary care ph ysician. Patient reports he was supposed to make an appointment to see a orthopedic back specialist at [facility] for recommended MRI however has not made this appointment yet. Patient denies loss of bowel or bladder control, denies urinary retention. Denies burning with urination. Denies recent fever or chills. Denies dysuria or hematuria. Denies trauma to his low back. Denies fever or chills. Patient reports while he was on his way to the emergency department today his truck needed jumpstarted, reports while taking the jumper cables off the battery one of the cable clamps hit him in the left brow causing mild swelling. Patient denies loss of consciousness, denies dizziness or headaches, reports pain at the left brow site, denies visual changes or visual disturbances. Denies syncopal or near syncopal episodes. Denies neck pain. Reports he did not fall. Patient denies taking pain medications prior to arrival to the ER today. Patient denies chest pains, chest palpitations, shortness of breath, cough or chest congestion. Denies a history of IV drug use, immunosuppression, cancers, numbness or tingling to his genitals or buttocks area, denies specific trauma to his back. Patient denies other physical complaints or physical concerns. Review of Systems: Review of Systems: 14 body systems of review of systems have been reviewed. See HPI for pertinent positives and negative responses, otherwise all other systems are negative, nonpertinent or noncontributory. Constitutional: Negative except as outlined in HPI above. Skin: Negative except as outlined in HPI above. Eyes: Negative except as outlined in HPI above. HENT: Negative except as outlined in HPI above. Respiratory: Negative except as outlined in HPI above. Cardiovascular: Negative except as outlined in HPI above. GI: Negative except as outlined in HPI above. : Negative except as outlined in HPI above. Musculoskeletal: Negative except as outlined in HPI above. Integument: Negative except as outlined in HPI above. Neurologic: Negative except as outlined in HPI above. Endocrine: Negative except as outlined in HPI above. Lymphatic: Negative except as outlined in HPI above. Psychiatric: Negative except as outlined in HPI above. Heart Score: C/O Chest Pain: No Risk Factors: Risk Factors: DM, Current or recent (<one month) smoker, HTN, HLP, family history of CAD, obesity. Risk Scores: Score 0 - 3: 2.5% MACE over next 6 weeks - Discharge Home Score 4 - 6: 20.3% MACE over next 6 weeks - Admit for Clinical Observation Score 7 - 10: 72.7% MACE over next 6 weeks - Early Invasive Strategies Allergies: Allergies: Allergies Coded Allergies Type Severity Reaction Last Updated Verified No Known Drug Allergies 03/16/21 No Physical Exam: PE: Constitutional: Well developed, well nourished, no acute distress, non-toxic elsa earance. 71-year-old male in no apparent distress. HENT: Normocephalic, contusion to left brow, skin is intact, no abrasion or laceration over or around the contusion site, no drooling, no trismus, no raccoon eyes, no baca sign, no drainage from nasal turbinates, bilateral nasal turbinates moist and patent, bilateral TMs intact, within normal limits, no drainage from bilateral auditory canals, no malocclusion. Patient speaking in normal voice tones. Eyes: Conjunctiva normal, no discharge. PERRLA, satisfactory 6 cardinal eye movements. Neck: Normal range of motion, no stridor. No C-spine pain, no neck pain to palpation. Cardiovascular: No cyanosis appreciated, distal cap refill less than 2 seconds. Regular rate and rhythm. Lungs & Thorax: Patient is in no respiratory distress, no audible adventitious lung sounds appreciated. Clear to auscultation all lung [place]. Abdomen: Nontender, no abnormalities noted. Skin: Warm, dry, no erythema, no rash. Back: No deformities appreciated, no crepitus appreciated, pain to bilateral lumbar muscular structures, no midline spinal pain, no CVA TTP left or right. intact 5/5 motor strength with hip flexion, knee flexion,extension, knee adduction, plantar/dorsiflexion at the ankle, and dorsiflexion of the toe bilaterally. Extremities: No tenderness, no cyanosis, no clubbing, ROM intact, no edema. Neurologic: Alert and oriented X 3, normal motor function, normal sensory function, no focal deficits noted. Psychologic: Affect normal, judgement normal, mood normal. Current Patient Data: Vital Signs: Vital Signs Date Time Temp Pulse Resp B/P (MAP) Pulse Ox O2 Delivery O2 Flow Rate FiO2 03/16/21 14:20 98.1 80 15 146/70 (95) 98 Room Air 98.1 EKG: EKG: [] Radiology/Procedures: Radiology/Procedures: REASON: Lumbar pain PROCEDURE: CT LUMBAR SPINE WO CONTRAST EXAMINATION: CT lumbar spine EXAM: CT lumbar spine without IV contrast CLINICAL HISTORY:Reason: Lumbar pain / Spl. Instructions: / History: COMPARISON: None available. TECHNIQUE: Helical CT was performed through the lumbar spine. Axial, coronal and sagittal reformatted images were generated. Without IV contrast PQRS compliance statement - One or more of the following individualized dose reduction techniques were utilized for this study: 1. Automated exposure control 2. Adjustment of the mA and/or kV according to patient size 3. Use of iterative reconstruction technique FINDINGS: There is normal alignment of the lumbar spine. There are 5 nonrib-bearing lumbar vertebra. Vertebral body heights are relatively preserved. There is diffuse osteopenia. The height of the intervertebral discs is relatively maintained. There are conge nitally shortened pedicles. T12-L1: There is disc desiccation with increased sclerosis of the endplates with central lucencies at the T12 and L1 vertebral bodies consistent with evolving Schmorl's nodes. There are marginal endplate osteophytes. There is no evidence of disc herniation, spinal stenosis or foraminal compromise. L1-L2: There is disc desiccation with increased sclerosis of the endplates with small subchondral cyst along the central portion of the L2 vertebral body with marginal endplate osteophytes. There is a small broad base disc bulge resulting in mild central canal narrowing with mild bilateral neuroforaminal narrowing. L2-L3: There is disc desiccation with vacuum disc phenomenon. There is increased endplate sclerosis with small subchondral cysts most pronounced along the superior posterior endplate at L3. There is a broad-based disc bulge with associated marginal osteophytes and ligamentum flavum hypertrophy resulting in moderate central canal and neural foraminal narrowing bilaterally. L3-L4: There is disc desiccation with vacuum disc phenomenon with central subchondral lucencies in the inferior endplate of L3. There is a broad-based disc bulge with associated marginal osteophytes and ligamentum flavum hypertrophy and facet arthrosis resulting in moderate to severe central canal and bilateral neural foraminal narrowing. L4-L5: There is disc desiccation with vacuum disc phenomenon with minimal central subchondral cysts in the inferior endplate of L4. There is a broad-based disc bulge with associated marginal osteophytes, ligamentum flavum hypertrophy and facet arthrosis resulting in moderate central canal and bilateral neural foraminal narrowing. L5-S1: There is disc desiccation with broad-based disc bulge and ligamentum flavum hypertrophy resulting in mild to moderate central canal narrowing and mild bilateral neuroforaminal narrowing. There is similar-appearing degenerative changes of bilateral SI joints small subchondral cysts seen within the superior aspect of the right iliac bone. There is no evidence of fracture. Paraspinal muscles are unremarkable. No evidence of acute process in the visualized retroperitoneal structures. Sigmoid diverticulosis without evidence of diverticulitis. IMPRESSION: 1. Diffuse osteopenia with no evidence of acute osseous injury. 2. Blbprtmg-zq-qqvyah multilevel degenerative changes with broad-based disc bulges at the L2-L5 levels most pronounced at the L3-L4 level causing moderate to severe central canal as well as moderate to severe bilateral neural foraminal narrowing. 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 3. Similar degenerative changes of bilateral SI joints are noted. Electronically signed by: Donte Rehman DO (03/16/2021 4:07 PM) [facility] REASON: Blunt head trauma left brow PROCEDURE: CT HEAD AND CERVICAL SPINE WO EXAM: CT HEAD WITHOUT IV CONTRAST CLINICAL HISTORY: Reason: Blunt head trauma left brow / Spl. Instructions: / History: COMPARISON: None. TECHNIQUE: Routine CT of the head without contrast. Soft tissues and bone windows were reviewed. PQRS compliance statement - One or more of the following individualized dose reduction techniques were utilized for this study: 1. Automated exposure control 2. Adjustment of the mA and/or kV according to patient size 3. Use of iterative reconstruction technique FINDINGS: There is no evidence of hemorrhage, mass or extra-axial fluid collection. Stack-white differentiation is maintained with no evidence of edema. There is no mass effect or shift of the intracranial structures. The ventricles, basilar cisterns and cortical sulci are normal in size and configuration for the patients stated age. The cerebellum and brainstem are unremarkable. The calvarium demonstrates no evidence of fracture or focal lesion. There is normal aeration of the visualized paranasal sinuses and mastoid air cells. The visualized portions of the orbits are normal. Subcutaneous soft tissue swelling overlying the left orbit/frontal region. . Atherosclerotic calcifications of the intracranial internal carotid and vertebral arteries is seen. IMPRESSION: No evidence for acute intracranial process. Subcutaneous soft tissue swelling overlying the left orbit/frontal region. Course & Med Decision Making: Course & Med Decision Making Pertinent Labs and Imaging studies reviewed. (See chart for details) 71-year-old male, vital signs reviewed, presents emergency department concerning increasing back discomfort of his chronic back pain. Patient also reports being struck in the left brow with a jumper cable clamp prior to arrival to the emergency department. Physical examination consistent with patient's explanation of events, back pain most likely sciatica exacerbation of chronic back pain. There is no abrasion, laceration, skin is intact over brow, no indication for tetanus immunization today in the emergency department. patient has no history of lumbar imaging, will apply ice pack to left brow contusion, CT head and C-spine, CT of lumbar spine. Will consider pain treatment pending CT head imaging result. Urinalysis assay. CT head negative for acute process, ordered 10 mg Decadron IM, 60 mg orphenadrine IM, 30 mg Toradol IM. Patient's urine is not infected, CT head unremarkable for acute process, CT lumbar spine shows degenerative changes but no acute fracture. Discussed findings with patient, patient reports good pain relief with medications given in the ED today, discussed with patient strict follow-up with primary care and orthopedic follow-up to get his MRI as it was recommended to him by his primary care physician. Will prescribe lidocaine patches, prednisone regimen, orphenadrine tablets for muscle pain. Discussed strict follow-up with primary care, return ER precautions or concerns, patient gave verbal understanding of and is amenable to ED discharge planning. Discussed with the patient all findings and diagnostic testing as well as the need to follow-up with their primary care provider for further evaluation and treatment or return to the ED if any new or worsening symptoms. Strict return precautions were also discussed at length, the patient voiced understanding and agreement with the discharge planning. The patient was nontoxic in appearance, in no apparent distress, and hemodynamically stable at the time of disposition. Opal Disclaimer: Opal Disclaimer: This electronic medical record was generated, in whole or in part, using a voice recognition dictation system. Departure Departure Impression: Primary Impression: Contusion of head Qualified Codes: S00.83XA - Contusion of other part of head, initial encounter Additional Impression: Chronic back pain Qualified Codes: M54.50 - Low back pain, unspecified; G89.29 - Other chronic pain Disposition: HOME / SELF CARE / HOMELESS Condition: GOOD Referrals: UNKNOWN PCP NAME (PCP) Patient Instructions: Chronic Back Pain, Contusion Additional Instructions: You were seen today in the emergency department after being struck over the left eyebrow area by a jumper cable clamp, also for low back pain. The CT of your head and C-spine did not show any concerning findings, the CT of your low back did show degenerative changes, you had reported your primary care doctor at recommended a follow-up with a land resource specialist to have an MRI for ongoing investigation and care for your low back pains. Please follow-up with this orthopedic doctor to have your low back pain investigated further. I am prescribing you lidocaine patches to place over your low back for acute pain. I am also prescribing you oral prednisone that you will take over the next 5 days, I am also prescribing you orphenadrine muscle relaxer that you can use twice a day as needed for back muscle spasms and pain. Please take as directed. Return to the emergency department for worsening symptoms or other concerns. Thank you for visiting our Emergency Department. It was a pleasure taking care of you today in the emergency department and we appreciate you trusting us with your care. If any additional problems come up don't hesitate to return to visit us. Please follow up with your primary care provider so they can plan additional care if needed and know about the problem that you had. If symptoms worsen come back to the Emergency Department. Any concerning symptoms that start such as chest pain, shortness of air, weakness or numbness on one side of the body, running high fevers or any other concerning symptoms return to the ER. EMERGENCY DEPARTMENT GENERAL DISCHARGE INSTRUCTIONS Thank you for coming to [facility] Emergency Department (ED) today and trusting us with you care. We trust that you had a positive experience in our Emergency Department. If you wish to speak to the department management, you may call the Director at [phone]. YOUR FOLLOW UP INSTRUCTIONS ARE FOLLOWS: 1. Do you have a private Doctor? If you do not have a private doctor, please ask for a resource list of physicians or clinics that may be able to assist you with follow up care. 2. The Emergency Physicain has interpreted your x-rays. The X-Ray specialist will also review them. If there is a change in the findings, you will be notified in 48 hours when at all possible. 3. A lab test or culture has been done, your results will be reviewed and you will be notified if you need a change in treatment. ADDITIONAL INSTRUCTIONS AND INFORMATION: 1. Your care today has been supervised by a physician who is specially trained in emergency care. Many problems require more than one evaluation for a complete diagnosis and treatment. We recommend that you schedule your follow up appointment as recommended to ensure complete treatment of you illness or injury. If you are unable to obtain follow up care and continue to have a problem, or if your condition worsens, we recommend that you return to the ED. 2. We are not able to safely determine your condition over the phone nor are we able to give sound medical advice over the phone. For these safety reasons, if you call for medical advice we will ask you to come to the ED for further evaluation. 3. If you have any questions regarding these discharge instructions please call the ED at [phone]. SAFETY INFORMATION: In the interest of safety, wellness, and injury prevention; we encourage you to wear your sealbelt, if you smoke; quite smoking, and we encourage family to use a protective helmet for bicycling and other sporting events that present an increased risk for head injury. IF YOUR SYMPTOMS WORSEN OR NEW SYMPTOMS DEVELOP, OR YOU HAVE CONCERNS ABOUT YOUR CONDITION; OR IF YOUR CONDITION WORSENS WHILE YOU ARE WAITING FOR YOUR FOLLOW UP APPOINTMENT; EITHER CONTACT YOUR PRIMARY CARE DOCTOR, THE PHYSICIAN WHOSE NAME AND NUMBER YOU WERE GIVEN, OR RETURN TO THE ED IMMEDIATELY. Scripts Orphenadrine Citrate (ORPHENADRINE CITRATE) 100 Mg Tablet.er 1 TAB PO BID, #14 TAB 0 Refills Prov: SAIRA SANCHEZ APRN 03/16/21 Prednisone (PREDNISONE) 50 Mg Tablet 1 TAB PO DAILY for back pain, #5 TAB 0 Refills Prov: SAIRA SANCHEZ APRN 03/16/21 Lidocaine (Lidocaine PATCH ) 1 Each Adh..patch 1 EACH TP DAILY for FOR LOCAL PAIN, #30 PATCH 0 Refills REMOVE AFTER 12 HOURS Prov: SAIRA SANCHEZ APRN 03/16/21 SAIRA SANCHEZ APRN Mar 16, 2021 15:05
--- NOTE | 2021-03-16 15:46 | RAD ---
EXAM: CT HEAD WITHOUT IV CONTRAST CLINICAL HISTORY: Reason: Blunt head trauma left brow / Spl. Instructions: / History: COMPARISON: None. TECHNIQUE: Routine CT of the head without contrast. Soft tissues and bone windows were reviewed. PQRS compliance statement - One or more of the following individualized dose reduction techniques wer e utilized for this study: 1. Automated exposure control 2. Adjustment of the mA and/or kV according to patient size 3. Use of iterative reconstruction technique FINDINGS: There is no evidence of hemorrhage, mass or extra-axial fluid collection. Stack-white differentiation is maintained with no evidence of edema. There is no mass effect or shift of the intracranial structures. The ventricles, basilar cisterns and cortical sulci are normal in size and configuration for the shasta ents stated age. The cerebellum and brainstem are unremarkable. The calvarium demonstrates no evidence of fracture or focal lesion. There is normal aeration of the visualized paranasal sinuses and mastoid air cells. The visualized portions of the orbits are normal. Subcutaneous soft tissue swelling overlying the left orbit/frontal region. . Atherosclerotic calcifications of the intracranial internal carotid and vertebral arteries is seen. IMPRESSION: No evidence for acute intracranial process. Subcutaneous soft tissue swelling overlying the left orbit/frontal region. EXAM: CT CERVICAL SPINE WITHOUT IV CONTRAST CLINICAL HISTORY: Reason: Blunt head trauma left brow / Spl. Instructions: / History: COMPARISON: None available. TECHNIQUE: Helical CT of the cervical spine was performed. Axial, coronal and sagittal reformatted im ages were also performed. PQRS compliance statement - One or more of the following individualized dose reduction techniques wer e utilized for this study: 1. Automated exposure control 2. Adjustment of the mA and/or kV according to patient size 3. Use of iterative reconstruction technique FINDINGS: Vertebral body heights are preserved. No spondylolisthesis. There is mild C2-3, C3-4 C4-5, C5-6 and C6-7 disc height loss. Small endplate osteophytes. Facet dege nerative changes. Right apical emphysematous cystic changes are seen. Patchy and wedge-shaped right upper lung opacitie s are seen. IMPRESSION: 1. Vertebral heights are preserved. 2. Multilevel degenerative changes of spine are seen. 3. No spondylolisthesis. 4. Bilateral emphysematous changes are seen. Linear and patchy opacities likely scarring/atelectasis . However further evaluation with CT chest is recommended to exclude underlying nodular/masslike comp onent. Electronically signed by: Karl Dodd MD (03/16/2021 3:44 PM) [facility]
--- NOTE | 2021-03-16 16:10 | RAD ---
EXAMINATION: CT lumbar spine EXAM: CT lumbar spine without IV contrast CLINICAL HISTORY:Reason: Lumbar pain / Spl. Instructions: / History: COMPARISON: None available. TECHNIQUE: Helical CT was performed through the lumbar spine. Axial, coronal and sagittal reformatted images were generated. Without IV contrast PQRS compliance statement - One or more of the following individualized dose reduction techniques wer e utilized for this study: 1. Automated exposure control 2. Adjustment of the mA and/or kV according to patient size 3. Use of iterative reconstruction technique FINDINGS: There is normal alignment of the lumbar spine. There are 5 nonrib-bearing lumbar vertebra. Vertebral body heights are relatively preserved. There is diffuse osteopenia. The height of the intervertebral discs is relatively maintained. There are congenitally shortened ped icles. T12-L1: There is disc desiccation with increased sclerosis of the endplates with central lucencies at the T12 and L1 vertebral bodies consistent with evolving Schmorl's nodes. There are marginal endplate osteophytes. There is no evide nce of disc herniation, spinal stenosis or foraminal compromise. L1-L2: There is disc desiccation with increased sclerosis of the endplates with small subchondral cys t along the central portion of the L2 vertebral body with marginal endplate osteophytes. There is a s mall broad base disc bulge resulting in mild central canal narrowing with mild bilateral neuroforamin al narrowing. L2-L3: There is disc desiccation with vacuum disc phenomenon. There is increased endplate sclerosis w ith small subchondral cysts most pronounced along the superior posterior endplate at L3. There is a b road-based disc bulge with associated marginal osteophytes and ligamentum flavum hypertrophy resultin g in moderate central canal and neural foraminal narrowing bilaterally. L3-L4: There is disc desiccation with vacuum disc phenomenon with central subchondral lucencies in th e inferior endplate of L3. There is a broad-based disc bulge with associated marginal osteophytes and ligamentum flavum hypertrophy and facet arthrosis resulting in moderate to severe central canal and bilateral neural foraminal narrowing. L4-L5: There is disc desiccation with vacuum disc phenomenon with minimal central subchondral cysts i n the inferior endplate of L4. There is a broad-based disc bulge with associated marginal osteophytes , ligamentum flavum hypertrophy and facet arthrosis resulting in moderate central canal and bilateral neural foraminal narrowing. L5-S1: There is disc desiccation with broad-based disc bulge and ligamentum flavum hypertrophy result ing in mild to moderate central canal narrowing and mild bilateral neuroforaminal narrowing. There is similar-appearing degenerative changes of bilateral SI joints small subchondral cysts seen w ithin the superior aspect of the right iliac bone. There is no evidence of fracture. Paraspinal muscl es are unremarkable. No evidence of acute process in the visualized retroperitoneal structures. Sigmo id diverticulosis without evidence of diverticulitis. IMPRESSION: 1. Diffuse osteopenia with no evidence of acute osseous injury. 2. Jkpoawje-bd-sjxcmg multilevel degenerative changes with broad-based disc bulges at the L2-L5 level s most pronounced at the L3-L4 level causing moderate to severe central canal as well as moderate to severe bilateral neural foraminal narrowing. 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 3. Similar degenerative changes of bilateral SI joints are noted. Electronically signed by: Donte Rehman DO (03/16/2021 4:07 PM) [facility]
[2021-03-16] MEDS ORDERED: KETOROLAC 30 MG/ML VIAL. IM ONE (16:15)
[2021-03-16] MEDS ORDERED: ORPHENADRINE CITRATE 60 MG/2 ML VIAL. IM ONE (16:15)
[2021-03-16] MEDS ORDERED: DEXAMETHASONE SOD PHOS 20 MG/5 ML VIAL. IM ONE (16:15)
[2021-03-16 16:34] LABS: BILIRUBIN,URINE NEGATIVE (NEG); CLARITY,URINE CLEAR; COLOR,URINE YELLOW; NITRITE,URINE NEGATIVE (NEG); PROTEIN,URINE NEGATIVE (NEG-TRACE)
[2021-03-16 17:03] LABS: BACTERIA,URINE FEW /HPF (0-FEW); RBC,URINE 0 /HPF (0-2); WBC,URINE OCC /HPF (0-4)
[2021-03-16] MEDS ORDERED: PRED50TA PO (17:38)
[2021-03-16] MEDS ORDERED: ORPH100T PO (17:38)
[2021-03-16] MEDS ORDERED: LIDO700A21 TP (17:38)
[2021-03-16 17:45] VITALS: BP 119/64
== END 2021-03-16 17:45 | disposition home or self-care (01) ==
LOC: ER 14:07
DX: S00.83XA Contusion of other part of head, initial encounter (principal); M54.59 Other low back pain; G89.29 Other chronic pain; I11.0 Hypertensive heart disease with heart failure; I50.9 Heart failure, unspecified; I25.10 Atherosclerotic heart disease of native coronary artery without angina pectoris; E03.9 Hypothyroidism, unspecified; W22.8XXA Striking against or struck by other objects, initial encounter; Y93.89 Activity, other specified; Y92.89 Other specified places as the place of occurrence of the external cause; Y99.8 Other external cause status
CPT/HCPCS: 70450; 72125; 72131; 81001; 96372; 99284; J1100; J1885; J2360

== ENCOUNTER 2021-06-05 14:10 | Inpatient (IN) | payer MEDICARE ==
[~2021-06-05] VITALS: Ht 170.2 cm; Wt 67.2 kg
--- NOTE | 2021-06-05 15:13 | PHYS DOC ---
Past Medical History Past Medical History: CAD, CHF, Dementia, Hypertension, Hypothyroid, Other Additional Past Medical Histor: chronic back pain, head injury Past Surgical History: Other Smoking Status: Former Smoker Alcohol Use: None Drug Use: None General Adult EDM: Chief Complaint: WEAKNESS/GENERALIZED HPI: HPI: Patient is a 71 year old very poor historian male with a history of CAD, hypertension, CHF, Dementia, hypothyroidism, presenting to the ED today with the who is also a poor historian with multiple complaints. Patient is complaining of dizziness, bilateral lower extremity weakness and low back pain, symptoms began yesterday the patient states a week ago he fell. states patient is usually weak, patient denies any loss of consciousness when he fell. He states his legs gave out specifically left knee resulting to his fall. Patient is also complaining of bilateral lower extremity pain and low back pain which the states are chronic. Patient denies any loss of bowel/bladder function. Review of Systems: Review of Systems: Constitutional: Denies fever or chills. [] Eyes: Denies change in visual acuity. [] HENT: Denies nasal congestion or sore throat. [] Respiratory: Denies cough or shortness of breath. [] Cardiovascular: Denies chest pain or edema. [] GI: Denies abdominal pain, nausea, vomiting, bloody stools or diarrhea. [] : Denies dysuria. [] Musculoskeletal: Reports bilateral lower extremity pain, low back pain Integument: Denies rash. [] Neurologic: Reports generalized weakness and dizziness. Denies headache, focal weakness or sensory changes. Psychiatric: Denies depression or anxiety. [] Heart Score: C/O Chest Pain: N/A Risk Factors: Risk Factors: DM, Current or recent (<one month) smoker, HTN, HLP, family history of CAD, obesity. Risk Scores: Score 0 - 3: 2.5% MACE over next 6 weeks - Discharge Home Score 4 - 6: 20.3% MACE over next 6 weeks - Admit for Clinical Observation Score 7 - 10: 72.7% MACE over next 6 weeks - Early Invasive Strategies Allergies: Allergies: Allergies Coded Allergies Type Severity Reaction Last Updated Verified No Known Drug Allergies 03/16/21 No Physical Exam: PE: Constitutional: Well developed, well nourished, no acute distress, non-toxic a ppearance. [] HENT: Normocephalic, atraumatic, bilateral external ears normal, oropharynx moist, no oral exudates, nose normal. [] Eyes: PERRLA, EOMI, conjunctiva normal, no discharge. [] Neck: Normal range of motion, no tenderness, supple, no stridor. [] Cardiovascular: Old healed surgical incision noted midline chest. Heart rate regular rhythm Lungs & Thorax: Bilateral breath sounds clear to auscultation [] Abdomen: Bowel sounds normal, soft, no tenderness, no masses, no pulsatile masses. [] Skin: Warm, dry, no erythema, no rash. [] Back: No tenderness, no CVA tenderness. [] Extremities: No tenderness, no cyanosis, no clubbing, ROM intact, no edema. Right lower extremity appears to have a slight drift when patient walks Neurologic: Alert and oriented X 3, normal motor function, normal sensory function, no focal deficits noted. Cranial nerves II through XII intact Psychologic: Affect normal, judgement normal, mood normal. [] Current Patient Data: Vital Signs: Vital Signs Date Time Temp Pulse Resp B/P (MAP) Pulse Ox O2 Delivery O2 Flow Rate FiO2 06/05/21 14:10 98.2 57 18 104/57 (73) 97 Room Air 98.2 EKG: EK interpreted by Dr. Rodriguez sinus rhythm heart rate 56 no STEMI [] Radiology/Procedures: Radiology/Procedures: []PROCEDURE: CT THORACIC SPINE WO CONTRAST CT LUMBAR SPINE WO, CT THORACIC SPINE WO History: Fall, weakness and pain. Technique: Noncontrast CT was performed of the lumbar spine. Multiplanar reconstructions were performed. Comparison: CT lumbar spine 03/16/2021. Findings: Decreased osseous mineralization. There are 12 rib-bearing thoracic vertebral segments. Normal alignment. No fracture or dislocation. Mild multilevel thoracic degenerative disc disease. Biapical scarring with right lung apex bleb. Patulous esophagus. Calcified pulmonary parenchymal granulomas and calcified mediastinal/hilar lymph nodes. Mild bronchiectasis and bronchial wall thickening. There are 5 nonrib-bearing lumbar vertebral segments. Normal alignment. No fracture or dislocation. Multilevel endplate Schmorl's nodes. Mild multilevel degenerative disc and endplate disease. Calcified splenic granulomas. Calcifications of the aorta without aneurysm. Heavy sigmoid diverticulosis without evidence of diverticulitis. Impression: 1. No acute findings in the thoracic and lumbar spine. Exposure: One or more of the following individualized dose reduction techniques were utilized for this examination: 1. Automated exposure control 2. Adjustment of the mA and/or kV according to patient size 3. Use of iterative reconstruction technique. Electronically signed by: Marc Gunter MD (06/05/2021 3:44 PM) [id number] DICTATED and SIGNED BY: MARC GUNTER MD DATE: 06/05/21 [id number] PROCEDURE: KNEE LEFT 3V Left knee 3 views, AP chest. HISTORY: Pain, fall, weakness Left knee 3 views were taken of the left knee. There is moderate vascular calcification. There is chondrocalcinosis at the knee. There is no fracture or joint effusion. AP chest AP view was taken of the chest. There are no acute infiltrates. There is no pneumothorax or pleural effusion. Patient had previous coronary bypass. Heart is normal in size. IMPRESSION: 1. No acute chest disease. 2. Chondrocalcinosis left knee. 3. No fracture noted left knee. Electronically signed by: Federico Palencia MD (06/05/2021 3:51 PM) [facility] DICTATED and SIGNED BY: FEDERICO PALENCIA MD DATE: 06/05/21 [id number] PROCEDURE: CT HEAD AND CERVICAL SPINE WO CT HEAD AND C-SPINE WO History: Fall, weakness. Pain. Comparison: 03/16/2021 Technique: Noncontrast CT of the head and cervical spine. Findings: CT HEAD: There is no evidence for intracranial mass or hemorrhage. There is no hydrocephalus or midline shift. No abnormal extra-axial fluid collections are present. No evidence of acute territorial infarction. Calcifications of the intracranial carotid arteries. The visualized paranasal sinuses and mastoid air cells are clear. The skull and scalp are within normal limits. CT CERVICAL SPINE: There is no evidence for fracture in the cervical spine. Alignment is normal. Mild multilevel degenerative disc disease. No destructive osseous lesions are seen. Scarring and emphysematous changes at the lung apices with right apical bleb. Impression: 1. No acute intracranial findings. 2. No acute osseous abnormality in the cervical spine. ------- Exposure: One or more of the following individualized dose reduction techniques were utilized for this examination: 1. Automated exposure control 2. Adjustment of the mA and/or kV according to patient size 3. Use of iterative reconstruction technique. Electronically signed by: Marc Gunter MD (06/05/2021 3:19 PM) [id number] DICTATED and SIGNED BY: MARC GUNTER MD DATE: 06/05/21 [id number] Course & Med Decision Making: Course & Med Decision Making Pertinent Labs and Imaging studies reviewed. (See chart for details) This is a 71-year-old male patient presented to the ED today with complaints of dizziness, bilateral lower extremity weakness, back pain. Symptoms got worse yesterday though he reports falling a week ago. Patient and are very poor historian. Vitals on arrival to the ED temperature 98.2, heart rate 57, respiration 18 on room air, blood pressure 104/57, O2 sats 97%. CBC with a WBC of 3.2, hemoglobin 10.0 with hematocrit of 29.7, CMP with nothing really acute, TSH 32.107-history of hypothyroidism. UA positive for UTI, patient was started on Rocephin and IV fluids. Spoke with Dr. Snider who accepted patient for admission Dragmick Disclaimer: Opal Disclaimer: This electronic medical record was generated, in whole or in part, using a voice recognition dictation system. Departure Departure Impression: Primary Impression: Chronic back pain Qualified Codes: M54.50 - Low back pain, unspecified; G89.29 - Other chronic pain Additional Impressions: Dizziness Weakness Hypothyroidism Qualified Codes: E03.9 - Hypothyroidism, unspecified Urinary tract infection Qualified Codes: N30.00 - Acute cystitis without hematuria Disposition: ADMITTED INPATIENT Condition: STABLE Referrals: UNKNOWN PCP NAME (PCP) GRZEGORZ GREER APRN Jun 05, 2021 15:13
--- NOTE | 2021-06-05 15:22 | RAD ---
CT HEAD AND C-SPINE WO History: Fall, weakness. Pain. Comparison: 03/16/2021 Technique: Noncontrast CT of the head and cervical spine. Findings: CT HEAD: There is no evidence for intracranial mass or hemorrhage. There is no hydrocephalus or midline shift. No abnormal extra-axial fluid collections are present. No evidence of acute territorial infarction. Calcifications of the intracranial carotid arteries. The visualized paranasal sinuses and mastoid air cells are clear. The skull and scalp are within normal limits. CT CERVICAL SPINE: There is no evidence for fracture in the cervical spine. Alignment is normal. Mild multilevel degenerative disc disease. No destructive osseous lesions are seen. Scarring and emphysematous changes at the lung apices with right apical bleb. Impression: 1. No acute intracranial findings. 2. No acute osseous abnormality in the cervical spine. ------- Exposure: One or more of the following individualized dose reduction techniques were utilized for thi s examination: 1. Automated exposure control 2. Adjustment of the mA and/or kV according to patient size 3. Use of iterative reconstruction technique. Electronically signed by: Marc Horvath MD (06/05/2021 3:19 PM) [id number]
--- NOTE | 2021-06-05 15:46 | RAD ---
CT LUMBAR SPINE WO, CT THORACIC SPINE WO History: Fall, weakness and pain. Technique: Noncontrast CT was performed of the lumbar spine. Multiplanar reconstructions were perform ed. Comparison: CT lumbar spine 03/16/2021. Findings: Decreased osseous mineralization. There are 12 rib-bearing thoracic vertebral segments. Normal alignment. No fracture or dislocation. M ild multilevel thoracic degenerative disc disease. Biapical scarring with right lung apex bleb. Patul ous esophagus. Calcified pulmonary parenchymal granulomas and calcified mediastinal/hilar lymph nodes . Mild bronchiectasis and bronchial wall thickening. There are 5 nonrib-bearing lumbar vertebral segments. Normal alignment. No fracture or dislocation. M ultilevel endplate Schmorl's nodes. Mild multilevel degenerative disc and endplate disease. Calcified splenic granulomas. Calcifications of the aorta without aneurysm. Heavy sigmoid diverticulosis witho ut evidence of diverticulitis. Impression: 1. No acute findings in the thoracic and lumbar spine. Exposure: One or more of the following individualized dose reduction techniques were utilized for thi s examination: 1. Automated exposure control 2. Adjustment of the mA and/or kV according to patient size 3. Use of iterative reconstruction technique. Electronically signed by: Marc Horvath MD (06/05/2021 3:44 PM) [id number]
--- NOTE | 2021-06-05 15:54 | RAD ---
Left knee 3 views, AP chest. HISTORY: Pain, fall, weakness Left knee 3 views were taken of the left knee. There is moderate vascular calcification. There is chondrocalcin osis at the knee. There is no fracture or joint effusion. AP chest AP view was taken of the chest. There are no acute infiltrates. There is no pneumothorax or pleural e ffusion. Patient had previous coronary bypass. Heart is normal in size. IMPRESSION: 1. No acute chest disease. 2. Chondrocalcinosis left knee. 3. No fracture noted left knee. Electronically signed by: Federico Palencia MD (06/05/2021 3:51 PM) [facility]
[2021-06-05 16:16] LABS: BASO # 0.1 x10^3/uL (0.0-0.2); BASO % 2 % (0-3); EOS # 0.3 x10^3/uL (0.0-0.7); EOS % 9 % (0-3); HEMATOCRIT 29.7 % (39.0-53.0); LYMPH % 61 % (24-48); MEAN CORPUSCULAR HEMOGLOBIN 31 pg (25-35); MEAN CORPUSCULAR HGB CONC 34 g/dL (31-37); MEAN CORPUSCULAR VOLUME 92 fL (79-100); MONO # 0.2 x10^3/uL (0.0-1.1); MONO % 6 % (0-9); NEUT # 0.7 x10^3/uL (1.8-7.7); NEUT % 22 % (31-73); PLATELET COUNT 223 x10^3/uL (140-400); RED BLOOD COUNT 3.24 x10^6/uL (4.30-5.70); RED CELL DISTRIBUTION WIDTH 14.6 % (11.5-14.5); WHITE BLOOD COUNT 3.2 x10^3/uL (4.0-11.0)
[2021-06-05 16:18] LABS: CALCIUM 8.3 mg/dL (8.5-10.1); CREATININE 1.2 mg/dL (0.7-1.3); GFR 71.8; POTASSIUM 3.4 mmol/L (3.5-5.1)
[2021-06-05 16:24] LABS: ALBUMIN 3.7 g/dL (3.4-5.0); ALBUMIN/GLOBULIN RATIO 1.2 (1.0-1.7); MAGNESIUM 1.7 mg/dL (1.8-2.4); TOTAL BILIRUBIN 0.6 mg/dL (0.2-1.0); TOTAL PROTEIN 6.8 g/dL (6.4-8.2)
[2021-06-05 16:44] LABS: BILIRUBIN,URINE NEGATIVE (NEG); CLARITY,URINE TURBID; COLOR,URINE YELLOW; NITRITE,URINE NEGATIVE (NEG); PH,URINE 6.5 (<5.0-8.0); PROTEIN,URINE 100 mg/dL (NEG-TRACE); UROBILINOGEN,URINE 0.2 mg/dL (0.2 mg/dL)
[2021-06-05 16:48] LABS: BARBITURATES NEG (NEG); BENZODIAZEPINES NEG (NEG); CANNABINOIDS NEG (NEG); COCAINE NEG (NEG); METHADONE NEG (NEG); OPIATES NEG (NEG); PHENCYCLIDINE NEG (NEG)
[2021-06-05 16:50] LABS: AMPHETAMINE/METHAMPHETAMINE NEG (NEG)
[2021-06-05 16:53] LABS: BACTERIA,URINE MANY /HPF (0-FEW); RBC,URINE OCC /HPF (0-2); WBC,URINE >40 /HPF (0-4)
[2021-06-05 17:23] LABS: PLT ESTIMATE ADEQUATE (ADEQUATE)
[2021-06-05 17:27] LABS: % BANDS 1 % (0-9); % BASOS 2 % (0-3); % EOS 7 % (0-5); % LYMPHS 61 % (24-48); % MONOS 7 % (0-10); % SEGS 22 % (35-66)
[2021-06-05] MEDS ORDERED: ACETAMINOPHEN 325 MG TABLET. PO PRN ×2 (17:30)
[2021-06-05] MEDS ORDERED: HYDROcodone/APAP 5/325MG 1 TAB TABLET PO PRN (17:30)
[2021-06-05] MEDS ORDERED: ONDANSETRON PF 4 MG/2 ML VIAL. IVP PRN (17:30)
[2021-06-05] MEDS ORDERED: MORPHINE SULFATE 2 MG/ML INJ. IVP PRN (17:30)
[2021-06-05] MEDS ORDERED: IV NORMAL SALINE 1000ML BAG 1,000 ML IV ONE (17:30)
[2021-06-05] MEDS ORDERED: oxyCODONE/APAP 5/325 1 TAB TABLET PO PRN (17:30)
[2021-06-05] MEDS ORDERED: cefTRIAXone IV Push 1 GM VIAL. IVP ONE (17:30)
[2021-06-05] MEDS ORDERED: guaiFENesin DM 600/30MG 1 TAB TAB.ER.12H PO PRN (17:30)
--- NOTE | 2021-06-05 18:17 | HP ---
DATE OF SERVICE: 06/05/2021 ADMIT DATE: 06/05/2021 CHIEF COMPLAINT: Weakness. HISTORY OF PRESENT ILLNESS: The patient is a pleasant 71-year-old male who is noncompliant with his meds. He is not eating well at home. He has got multiple comorbidities including dementia. His brought him in because he is so weak. While here in the ER, we noticed that his thyroid is off. His TSH is greater than 30. He also has a UTI. He needs a rehab and nourishment. We are going to admit the patient. PAST MEDICAL HISTORY: Noncompliance, CHF, CAD, dementia, hypertension, hypothyroidism, chronic pain, head injury, previous tobacco abuse. ALLERGIES: None. FAMILY HISTORY: Diabetes. SOCIAL HISTORY: He lives at home with his . He is retired. He used to work at [employer]. He does not drink, smoke or take drugs, but he used to smoke. MEDICATIONS: Reviewed. Please refer to the MRAD. REVIEW OF SYSTEMS: Unable to obtain. He is too confused. PHYSICAL EXAMINATION: VITALS: Within normal limits and are stable. GENERAL: He is extremely weak and confused. HEENT: Normal cephalic atraumatic, external auditory canals are patent EYES: Extraocular muscles are intact, pupils are equally round and reactive to light and accommodation MUSCULOSKELETAL: Well developed, well nourished, good range of motion ENDOCRINE: No thyromegaly was palpated LYMPHATICS: No cervical chain or axillary nodes were noted HEMATOPOIETIC: No bruising NECK: Supple, no JVD, no thyromegaly was noted. LUNGS: Clear to auscultation in all lung [place] without rhonchi or wheezing. HEART: RRR, S1, S2 present. Peripheral pulses intact, no obvious murmurs were noted. ABDOMEN: Soft, nontender. Positive bowel sounds no organomegaly, normal bowel sounds. EXTREMITIES: Without any cyanosis, clubbing, or edema. Pedal pulses intact, Homans sign is negative. NEUROLOGIC: He is extremely weak and confused. PSYCHIATRIC: He is extremely weak and confused. SKIN: No ulcerations or rashes, good skin turgor, no jaundice. VASCULAR: Good capillary refill, neurovascular bundle appears to be intact. LABORATORY DATA: Urinalysis shows moderate leukocyte esterase and greater than 40 white cells. Electrolytes: Sodium 131, potassium 3.4, chloride 94, bicarb 26, BUN 7, creatinine 1.2, glucose 70, AST is high at 49. BNP high at 567. TSH is high at 32.107. Drug screen is negative. ASSESSMENT AND PLAN: Weakness, urinary tract infection, probable early failure to thrive, hypothyroidism, noncompliance with his meds, I suspect. The patient will be admitted. I spoke with the pharmacy. We are going to increase his Synthroid to 100 mcg a day. Physical therapy and occupational therapy evaluate and treat. We have added IV Rocephin. Home meds. Deep venous thrombosis prophylaxis. Full code. Consult social science professor for snf, PT, OT. Prognosis guarded. MAGDA DR: PASCALE/elba TID: [id number]
[2021-06-05 20:00] VITALS: BP 135/80
[2021-06-05] MEDS ORDERED: POTASSIUM CHLORIDE 20 MEQ TABLET.ER. PO ONE (20:00)
--- NOTE | 2021-06-05 20:00 | NUR ---
The patient, HUE UNDERWOOD, 71 y/o, M admitted by JESSEE BUSBY III, DO, was given written information regarding hospital policies, unit procedures and contact persons. Valuables were checked and left with him.
[2021-06-05] MEDS: HYDROcodone/APAP 5/325MG 1 TAB TABLET PO PRN (20:59)
[2021-06-05] MEDS ORDERED: metroNIDAZOLE 500 MG TABLET PO SCH (21:00)
[2021-06-05] MEDS ORDERED: AMOXICILLIN/K CLAV 875/125MG TABLET. PO SCH (21:00)
[2021-06-05] MEDS: FERROUS SULFATE 325 MG TABLET. PO SCH (21:00)
[2021-06-05] MEDS: BENZONATATE 100 MG CAPSULE. PO PRN (21:00)
[2021-06-05] MEDS: CYCLOBENZAPRINE 10 MG TABLET. PO SCH (21:00)
[2021-06-05] MEDS: CARBIDOPA/LEVODOPA 25/100MG TABLET PO SCH (22:48)
[2021-06-05 23:00] VITALS: BP 128/70
[2021-06-06 03:00] VITALS: BP 145/78
[2021-06-06] MEDS: LEVOTHYROXINE 100 MCG TABLET PO SCH (04:58)
--- NOTE | 2021-06-06 05:17 | EKG ---
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
--- NOTE | 2021-06-06 05:19 | EKG ---
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
[2021-06-06] MEDS ORDERED: LEVOTHYROXINE 50 MCG TABLET PO SCH (06:00)
[2021-06-06 07:00] VITALS: BP 106/67
[2021-06-06] MEDS ORDERED: LIDOCAINE (700MG/PATCH) PATCH. TP SCH (09:00)
[2021-06-06] MEDS ORDERED: predniSONE 20 MG TABLET PO SCH (09:00)
[2021-06-06] MEDS: HYDROCORTISONE 10 MG TABLET PO SCH (09:08)
[2021-06-06] MEDS: ASPIRIN ENTERIC COATED 81 MG TABLET.DR. PO SCH (09:08)
[2021-06-06] MEDS: CARBIDOPA/LEVODOPA 25/100MG TABLET PO SCH ×3 (09:09→20:22)
[2021-06-06] MEDS: FERROUS SULFATE 325 MG TABLET. PO SCH ×2 (09:09→20:22)
[2021-06-06] MEDS: ISOSORBIDE MONONITRATE ER 30 MG TAB.ER.24H PO SCH (09:09)
[2021-06-06] MEDS: TAMSULOSIN 0.4 MG CAP.ER.24H. PO SCH (09:09)
[2021-06-06] MEDS: LIDOCAINE (700MG/PATCH) PATCH. TP SCH (09:09)
[2021-06-06 11:00] VITALS: BP 81/41
--- NOTE | 2021-06-06 11:23 | NUR ---
SW following. Discussed with RN, pt from home with , room air, cardiac diet, rapid COVID-19 negative. PT/OT ordered. RN advised no SW needs at this time. SW will continue to follow.
--- NOTE | 2021-06-06 13:16 | PDOC ---
[employer] PROGRESS NOTE Date of Service DOS: DATE: 06/06/21 TIME: 13:14 Chief Complaint Chief Complaint Acute UTI Severe hypothyroidism Debilitation Failure to thrive Volume depletion History of Present Illness History of Present Illness 71-year-old male who is noncompliant with his meds. He is not eating well at home. He has got multiple comorbidities including dementia. His brought him in because he is so weak. While here in the ER, we noticed that his thyroid is off. His TSH is greater than 30. He also has a UTI. He needs a rehab and nourishment. We are going to admit the patient. 06/06/2021 No acute events overnight. Patient seen examined bedside. AF and slightly hypotensive. Asymptomatic at this time. Patient feels better but still has right leg weakness. Pending T4 levels. Restarted on levothyroxine and still on IV antibiotics. Pending urine cultures. PT OT ordered. Patient's chart, labs, images were reviewed and discussed with RN Vitals/I&O Vitals/I&O: Vital Signs Date Time Temp Pulse Resp B/P (MAP) Pulse Ox O2 Delivery O2 Flow Rate FiO2 06/06/21 11:00 98.0 58 18 81/41 (54) 98 Room Air 98.0 I & O 06/05/21 06/05/21 06/06/21 15:00 23:00 07:00 Intake Total 1240 ml 600 ml Output Total 200 ml 1000 ml Balance 1040 ml -400 ml Physical Exam General: Alert, Oriented X3, Cooperative Heart: Regular rate Lungs: Clear, Other Abdomen: Normal bowel sounds Extremities: No clubbing Skin: No rashes Labs Labs: Laboratory Tests Test 06/05/21 15:54 06/05/21 16:33 06/05/21 19:10 06/05/21 19:42 White Blood Count 3.2 x10^3/uL (4.0-11.0) Red Blood Count 3.24 x10^6/uL (4.30-5.70) Hemoglobin 10.0 g/dL (13.0-17.5) Hematocrit 29.7 % (39.0-53.0) Mean Corpuscular Volume 92 fL (79-100) Mean Corpuscular Hemoglobin 31 pg (25-35) Mean Corpuscular Hemoglobin Concent 34 g/dL (31-37) Red Cell Distribution Width 14.6 % (11.5-14.5) Platelet Count 223 x10^3/uL (140-400) Neutrophils (%) (Auto) 22 % (31-73) Lymphocytes (%) (Auto) 61 % (24-48) Monocytes (%) (Auto) 6 % (0-9) Eosinophils (%) (Auto) 9 % (0-3) Basophils (%) (Auto) 2 % (0-3) Neutrophils # (Auto) 0.7 x10^3/uL (1.8-7.7) Lymphocytes # (Auto) 2.0 x10^3/uL (1.0-4.8) Monocytes # (Auto) 0.2 x10^3/uL (0.0-1.1) Eosinophils # (Auto) 0.3 x10^3/uL (0.0-0.7) Basophils # (Auto) 0.1 x10^3/uL (0.0-0.2) Segmented Neutrophils % 22 % (35-66) Band Neutrophils % 1 % (0-9) Lymphocytes % 61 % (24-48) Monocytes % 7 % (0-10) Eosinophils % 7 % (0-5) Basophils % 2 % (0-3) Platelet Estimate Adequate (ADEQUATE) Sodium Level 131 mmol/L (136-145) Potassium Level 3.4 mmol/L (3.5-5.1) Chloride Level 94 mmol/L (98-107) Carbon Dioxide Level 26 mmol/L (21-32) Anion Gap 11 (6-14) Blood Urea Nitrogen 7 mg/dL (8-26) Creatinine 1.2 mg/dL (0.7-1.3) Estimated GFR (Cockcroft-Gault) 71.8 BUN/Creatinine Ratio 6 (6-20) Glucose Level 70 mg/dL (70-99) Calcium Level 8.3 mg/dL (8.5-10.1) Magnesium Level 1.7 mg/dL (1.8-2.4) Total Bilirubin 0.6 mg/dL (0.2-1.0) Aspartate Amino Transf (AST/SGOT) 49 U/L (15-37) Alanine Aminotransferase (ALT/SGPT) 10 U/L (16-63) Alkaline Phosphatase 47 U/L (46-116) Troponin I High Sensitivity 14 ng/L (4-75) 16 ng/L (4-75) BI-Vwc-G-Type Natriuretic Peptide 567 pg/mL (0-124) Total Protein 6.8 g/dL (6.4-8.2) Albumin 3.7 g/dL (3.4-5.0) Albumin/Globulin Ratio 1.2 (1.0-1.7) Thyroid Stimulating Hormone (TSH) 32.107 uIU/mL (0.358-3.74) Urine Collection Type Unknown Urine Color Yellow Urine Clarity Turbid Urine pH 6.5 (<5.0-8.0) Urine Specific Scott 1.025 (1.000-1.030) Urine Protein 100 mg/dL (NEG-TRACE) Urine Glucose (UA) Negative mg/dL (NEG) Urine Ketones (Stick) 15 mg/dL (NEG) Urine Blood Trace (NEG) Urine Nitrite Negative (NEG) Urine Bilirubin Negative (NEG) Urine Urobilinogen Dipstick 0.2 mg/dL (0.2 mg/dL) Urine Leukocyte Esterase Moderate (NEG) Urine RBC Occ /HPF (0-2) Urine WBC >40 /HPF (0-4) Urine Bacteria Many /HPF (0-FEW) Urine Opiates Screen Neg (NEG) Urine Methadone Screen Neg (NEG) Urine Barbiturates Neg (NEG) Urine Phencyclidine Screen Neg (NEG) Urine Amphetamine/Methamphetamine Neg (NEG) Urine Benzodiazepines Screen Neg (NEG) Urine Cocaine Screen Neg (NEG) Urine Cannabinoids Screen Neg (NEG) Urine Ethyl Alcohol Neg (NEG) SARS-CoV-2 Antigen (Rapid) Negative (NEGATIVE) Assessment and Plan Assessmemt and Plan Problems Medical Problems: (1) Chronic back pain Status: Acute (2) Dizziness Status: Acute (3) Hypothyroidism Status: Acute (4) Urinary tract infection Status: Acute (5) Weakness Status: Acute Comment Review of Relevant I have reviewed the following items tash (where applicable) has been applied. Medications: Current Medications Medications (Trade) Dose Ordered Sig/Theresa Route PRN Reason Start Time Stop Time Status Last Admin Dose Admin Ceftriaxone Sodium (Rocephin) 1 gm 1X ONCE IVP 06/05/21 17:30 06/05/21 17:31 DC 06/05/21 18:02 Sodium Chloride 1,000 ml @ 1,000 mls/hr 1X ONCE IV 2/28/22 17:30 06/05/21 18:29 DC 06/05/21 18:01 Amlodipine Besylate (Norvasc) 5 mg DAILY PO 06/06/21 09:00 06/06/21 09:08 Aspirin (Ecotrin) 81 mg DAILY PO 06/06/21 09:00 06/06/21 09:08 Benzonatate (Tessalon Perle) 100 mg PRN TID PRN PO COUGH 06/05/21 21:00 06/05/21 21:00 Cyclobenzaprine HCl (Flexeril) 10 mg QHS PO 06/05/21 21:00 06/05/21 21:00 Ferrous Sulfate (Feosol) 325 mg BID PO 06/05/21 21:00 06/06/21 09:09 Hydrocortisone (Cortef) 10 mg DAILY08 PO 06/06/21 08:00 06/06/21 09:08 Isosorbide Mononitrate (Imdur) 30 mg DAILY PO 06/06/21 09:00 06/06/21 09:09 Lidocaine (Lidoderm) 1 patch DAILY TP 06/06/21 09:00 06/06/21 09:09 Tamsulosin HCl (Flomax) 0.4 mg DAILY PO 06/06/21 09:00 06/06/21 09:09 Acetaminophen/ Hydrocodone Bitart (Lortab 5/325) 1 tab PRN Q6HRS PRN PO SEVERE PAIN 06/05/21 17:45 06/05/21 20:59 Levothyroxine Sodium (Synthroid) 100 mcg DAILY06 PO 06/06/21 06:00 06/06/21 04:58 Potassium Chloride (Klor-Con) 40 meq 1X ONCE PO 06/05/21 20:00 06/05/21 20:01 DC 06/05/21 20:59 Carbidopa/Levodopa (Sinemet 25/100) 1 tab TID PO 06/05/21 23:00 06/06/21 09:09 Justifications for Admission Other Justification ROC ALAS MD Jun 06, 2021 13:16
[2021-06-06 15:00] VITALS: BP 112/61
[2021-06-06 15:07] LABS: CALCIUM 7.8 mg/dL (8.5-10.1); CREATININE 1.2 mg/dL (0.7-1.3); GFR 71.8; MAGNESIUM 1.7 mg/dL (1.8-2.4)
[2021-06-06 19:35] VITALS: BP 83/53
[2021-06-06] MEDS: BENZONATATE 100 MG CAPSULE. PO PRN (20:22)
[2021-06-06] MEDS: HYDROcodone/APAP 5/325MG 1 TAB TABLET PO PRN (20:22)
[2021-06-06] MEDS: CYCLOBENZAPRINE 10 MG TABLET. PO SCH (20:22)
[2021-06-06] MEDS ORDERED: cefTRIAXone IV Push 1 GM VIAL. IVP SCH (21:00)
[2021-06-06 23:07] VITALS: BP 81/47
[2021-06-07 03:37] VITALS: BP 90/46
[2021-06-07] MEDS: LEVOTHYROXINE 100 MCG TABLET PO SCH (05:08)
[2021-06-07 07:00] VITALS: BP 94/51
[2021-06-07] MEDS: CARBIDOPA/LEVODOPA 25/100MG TABLET PO SCH ×3 (07:54→21:09)
[2021-06-07] MEDS: FERROUS SULFATE 325 MG TABLET. PO SCH ×2 (07:54→21:09)
[2021-06-07] MEDS: ASPIRIN ENTERIC COATED 81 MG TABLET.DR. PO SCH (07:54)
[2021-06-07] MEDS: HYDROCORTISONE 10 MG TABLET PO SCH (07:54)
[2021-06-07] MEDS: LIDOCAINE (700MG/PATCH) PATCH. TP SCH (07:54)
[2021-06-07] MEDS: TAMSULOSIN 0.4 MG CAP.ER.24H. PO SCH (07:54)
[2021-06-07] MEDS ORDERED: MAGNESIUM SULFATE 2GM 50 ML IV ONE (08:00)
[2021-06-07] MEDS ORDERED: IV NORMAL SALINE 1000ML BAG 1,000 ML IV PRN (08:00)
[2021-06-07 08:39] LABS: BASO # 0.1 x10^3/uL (0.0-0.2); BASO % 3 % (0-3); EOS # 0.1 x10^3/uL (0.0-0.7); EOS % 4 % (0-3); HEMATOCRIT 28.7 % (39.0-53.0); HEMOGLOBIN 9.4 g/dL (13.0-17.5); LYMPH # 1.7 x10^3/uL (1.0-4.8); LYMPH % 49 % (24-48); MEAN CORPUSCULAR HEMOGLOBIN 31 pg (25-35); MEAN CORPUSCULAR HGB CONC 33 g/dL (31-37); MEAN CORPUSCULAR VOLUME 94 fL (79-100); MONO # 0.2 x10^3/uL (0.0-1.1); MONO % 7 % (0-9); NEUT # 1.3 x10^3/uL (1.8-7.7); NEUT % 37 % (31-73); PLATELET COUNT 230 x10^3/uL (140-400); RED BLOOD COUNT 3.06 x10^6/uL (4.30-5.70); RED CELL DISTRIBUTION WIDTH 14.8 % (11.5-14.5); WHITE BLOOD COUNT 3.5 x10^3/uL (4.0-11.0)
[2021-06-07 08:46] LABS: CALCIUM 8.5 mg/dL (8.5-10.1); CREATININE 1.2 mg/dL (0.7-1.3); GFR 71.8
[2021-06-07] MEDS: ISOSORBIDE MONONITRATE ER 30 MG TAB.ER.24H PO SCH (08:57)
[2021-06-07] MEDS: IV NORMAL SALINE 1000ML BAG 1,000 ML IV PRN ×2 (09:24→16:34)
[2021-06-07 11:00] VITALS: BP 100/53
--- NOTE | 2021-06-07 11:55 | PDOC ---
[employer] PROGRESS NOTE Date of Service DOS: DATE: 06/07/21 TIME: 11:50 Chief Complaint Chief Complaint Acute UTI Severe hypothyroidism Debilitation Failure to thrive Volume depletion History of Present Illness History of Present Illness 71-year-old male who is noncompliant with his meds. He is not eating well at home. He has got multiple comorbidities including dementia. His brought him in because he is so weak. While here in the ER, we noticed that his thyroid is off. His TSH is greater than 30. He also has a UTI. He needs a rehab and nourishment. We are going to admit the patient. 06/06/2021 No acute events overnight. Patient seen examined bedside. AF and slightly hypotensive. Asymptomatic at this time. Patient feels better but still has right leg weakness. Pending T4 levels. Restarted on levothyroxine and still on IV antibiotics. Pending urine cultures. PT OT ordered. Patient's chart, labs, images were reviewed and discussed with RN 06/07/21 No acute events overnight. Patient seen examined bedside. Patient has low normal blood pressures. Energy is somewhat improved. Hyponatremia has improved from 129 to 135. Pending PT OT evaluation Vitals/I&O Vitals/I&O: Vital Signs Date Time Temp Pulse Resp B/P (MAP) Pulse Ox O2 Delivery O2 Flow Rate FiO2 06/07/21 11:00 98.5 65 18 100/53 (69) 94 Room Air 98.5 I & O 06/06/21 06/06/21 06/07/21 15:00 23:00 07:00 Intake Total 540 ml 720 ml Output Total 500 ml 1000 ml 700 ml Balance 40 ml -280 ml -700 ml Physical Exam General: Alert, Oriented X3, Cooperative Heart: Regular rate Lungs: Clear, Other Abdomen: Normal bowel sounds Extremities: No clubbing Skin: No rashes Labs Labs: Laboratory Tests Test 06/06/21 14:35 06/07/21 08:31 Sodium Level 129 mmol/L (136-145) 135 mmol/L (136-145) Potassium Level 4.0 mmol/L (3.5-5.1) 4.0 mmol/L (3.5-5.1) Chloride Level 98 mmol/L (98-107) 100 mmol/L (98-107) Carbon Dioxide Level 21 mmol/L (21-32) 25 mmol/L (21-32) Anion Gap 10 (6-14) 10 (6-14) Blood Urea Nitrogen 6 mg/dL (8-26) 6 mg/dL (8-26) Creatinine 1.2 mg/dL (0.7-1.3) 1.2 mg/dL (0.7-1.3) Estimated GFR (Cockcroft-Gault) 71.8 71.8 Glucose Level 92 mg/dL (70-99) 79 mg/dL (70-99) Calcium Level 7.8 mg/dL (8.5-10.1) 8.5 mg/dL (8.5-10.1) Magnesium Level 1.7 mg/dL (1.8-2.4) 2.0 mg/dL (1.8-2.4) Thyroxine (T4) 3.6 ug/dL (4.5-12.0) White Blood Count 3.5 x10^3/uL (4.0-11.0) Red Blood Count 3.06 x10^6/uL (4.30-5.70) Hemoglobin 9.4 g/dL (13.0-17.5) Hematocrit 28.7 % (39.0-53.0) Mean Corpuscular Volume 94 fL (79-100) Mean Corpuscular Hemoglobin 31 pg (25-35) Mean Corpuscular Hemoglobin Concent 33 g/dL (31-37) Red Cell Distribution Width 14.8 % (11.5-14.5) Platelet Count 230 x10^3/uL (140-400) Neutrophils (%) (Auto) 37 % (31-73) Lymphocytes (%) (Auto) 49 % (24-48) Monocytes (%) (Auto) 7 % (0-9) Eosinophils (%) (Auto) 4 % (0-3) Basophils (%) (Auto) 3 % (0-3) Neutrophils # (Auto) 1.3 x10^3/uL (1.8-7.7) Lymphocytes # (Auto) 1.7 x10^3/uL (1.0-4.8) Monocytes # (Auto) 0.2 x10^3/uL (0.0-1.1) Eosinophils # (Auto) 0.1 x10^3/uL (0.0-0.7) Basophils # (Auto) 0.1 x10^3/uL (0.0-0.2) Assessment and Plan Assessmemt and Plan Problems Medical Problems: (1) Chronic back pain Status: Acute (2) Dizziness Status: Acute (3) Hypothyroidism Status: Acute (4) Urinary tract infection Status: Acute (5) Weakness Status: Acute Comment Review of Relevant I have reviewed the following items tash (where applicable) has been applied. Medications: Current Medications Medications (Trade) Dose Ordered Sig/Theresa Route PRN Reason Start Time Stop Time Status Last Admin Dose Admin Ceftriaxone Sodium (Rocephin) 1 gm Q24H IVP 06/06/21 21:00 06/06/21 20:23 Magnesium Sulfate 50 ml @ 25 mls/hr 1X ONCE IV 06/07/21 08:00 06/07/21 09:59 DC 06/07/21 08:16 Sodium Chloride 1,000 ml @ 125 mls/hr CONT PRN IV . 06/07/21 09:30 06/10/21 09:29 06/07/21 09:24 Justifications for Admission Other Justification ROC ALAS MD Jun 07, 2021 11:55
[2021-06-07] MEDS: AMOXICILLIN 250 MG CAPSULE. PO SCH ×2 (14:32→21:09)
[2021-06-07 15:00] VITALS: BP 123/62
[2021-06-07 19:31] VITALS: BP 114/60
[2021-06-07] MEDS: LACTOBACILLUS RHAMNOSUS GG 1 CAPSULE. PO SCH (21:09)
[2021-06-07] MEDS: CYCLOBENZAPRINE 10 MG TABLET. PO SCH (21:09)
[2021-06-07 23:20] VITALS: BP 110/62
[2021-06-08 03:45] VITALS: BP 118/70
[2021-06-08] MEDS: LEVOTHYROXINE 100 MCG TABLET PO SCH (06:56)
[2021-06-08 07:00] VITALS: BP 142/74
[2021-06-08] MEDS: LACTOBACILLUS RHAMNOSUS GG 1 CAPSULE. PO SCH (08:46)
[2021-06-08] MEDS: HYDROCORTISONE 10 MG TABLET PO SCH (08:46)
[2021-06-08] MEDS: AMOXICILLIN 250 MG CAPSULE. PO SCH (08:46)
[2021-06-08] MEDS: CARBIDOPA/LEVODOPA 25/100MG TABLET PO SCH (08:46)
[2021-06-08] MEDS: ASPIRIN ENTERIC COATED 81 MG TABLET.DR. PO SCH (08:46)
[2021-06-08] MEDS: FERROUS SULFATE 325 MG TABLET. PO SCH (08:46)
[2021-06-08] MEDS: TAMSULOSIN 0.4 MG CAP.ER.24H. PO SCH (08:47)
[2021-06-08] MEDS: ISOSORBIDE MONONITRATE ER 30 MG TAB.ER.24H PO SCH (08:47)
[2021-06-08] MEDS: LIDOCAINE (700MG/PATCH) PATCH. TP SCH (08:48)
[2021-06-08] MEDS: HYDROcodone/APAP 5/325MG 1 TAB TABLET PO PRN (08:50)
[2021-06-08] MEDS: IV NORMAL SALINE 1000ML BAG 1,000 ML IV PRN (08:52)
[2021-06-08 11:00] VITALS: BP 128/65
--- NOTE | 2021-06-08 11:17 | NUR ---
[facility] following. Discussed with RN. RAMEZ met with pt to discuss SNF - pt does not want SNF, wants to go home and is agreeable to home health. Zoey Johansen RN checking on whether pt's [facility] plan is in network. RN and Dr. Jensen notified. Pt wanting to go home today. RAMEZ will continue to follow. Addendum: 06/08/21 at 1353 by ALBARO MYRICK Pt accepted with [facility]. Discharge orders for pt to go home today.
[2021-06-08] MEDS ORDERED: LEVO100T5 PO (11:48)
[2021-06-08] MEDS ORDERED: AMOX250C PO (11:48)
[2021-06-08] MEDS ORDERED: CARB1TAB22 PO (11:48)
--- NOTE | 2021-06-08 11:51 | SNU/HH DC ---
DISCHARGE WITH HOME HEALTH DISCHARGE INFORMATION: Discharge Date: Jun 08, 2021 Final Diagnosis: Problems Medical Problems: (1) Chronic back pain Status: Acute (2) Dizziness Status: Acute (3) Hypothyroidism Status: Acute (4) Urinary tract infection Status: Acute (5) Weakness Status: Acute Condition on Discharge: Stable HOME HEALTH: Face to Face: I certify this patient is under my care and that I, or a nurse practitioner or physician's nurseryman assistant working with me, had a face to face encounter that meets the physician face to face encounter requirements with this patient on []. Medical Complications: CABG, Falls Senior Care For: Assess Cardiopulm Status, Assess & Educate Safety, Assess/Skilled Observatio, Medication Management RN For Eval/Treatment: Yes Physical Therapy For: Evalulation/Treatment Occupational Therapy For: Evaluation/Treatment Home Health Aide For: Self-care Pt Meets Homebound Status: Poor coordination w/ amb., Extreme weakness w/ amb., Limited distance walking, Unable to negotiate home POST DISCHARGE ORDERS: Activity Instructions for Disc: Activity as tolerated Weight Bearing Status after Di: Other, see below Wound/Incision Care: No wound care needed FOLLOW-UP: Follow up with: PCP within 2 weeks of discharge DC TO SNF LABS: CBC, CMP TREATMENT/EQUIPMENT ORDERS: Adaptive Equipment Issued: None CERTIFICATION STATEMENT: Certification Statement: Certification Statement: Based on the above finding, I certify that this patient is confined to the home and needs intermittent fci care, physical therapy and/or speech therapy, or continues to need occupational therapy.~ This patient is under my care, and I have initiated the establishment of the plan of care.~ This patient will be followed by myself or a community physician who will periodically review the plan of care. Home Meds Active Scripts Carbidopa/Levodopa (CARBIDOPA-LEVODOPA 25-100 TAB) 1 Each Tablet, 1 TAB PO TID for parkinsons for 30 Days, #90 TAB 3 Refills Prov:ROC ALAS MD 06/08/21 Levothyroxine Sodium (LEVOTHYROXINE SODIUM) 100 Mcg Tablet, 100 MCG PO DAILY06 for hypothyroidism for 30 Days, #30 TAB 3 Refills Prov:ROC ALAS MD 06/08/21 Amoxicillin (AMOXICILLIN) 250 Mg Capsule, 500 MG PO [id number] for UTI for 5 Days, #15 CAP Prov:ROC ALAS MD 06/08/21 Benzonatate (TESSALON PERLE) 100 Mg Capsule, 1 CAP PO TID for cough, #21 CAP Prov:JOEY MARIN DO 11/01/20 Albuterol Sulfate (VENTOLIN HFA INHALER) 18 Gm Hfa.aer.ad, 2 PUFF INH QID for FOR ASTHMA, #1 INHALER 0 Refills Prov:JOEY MARIN DO 11/01/20 Fluticasone Propionate (FLOVENT 44MCG HFA) 10.6 Gm Aer.w.adap, 2 PUFF IH BID for 30 Days, #10.6 GM 2 Refills Prov:JOEY MARIN DO 11/01/20 Guaifenesin/Dextromethorphan (MUCINEX DM ER 600-30 MG TABLET) 1 Each Tab.er.12h, 1 TAB PO PRN BID PRN for cough and congestion for 14 Days, #28 TAB 0 Refills Prov:JOEY MARIN DO 11/01/20 Benzonatate (TESSALON PERLE) 100 Mg Capsule, 1 CAP PO TID, #30 CAP Prov:JOSEWENDIGRZEGORZ Beckford [employer] 10/10/20 Albuterol Sulfate (Proair Hfa) 8.5 Gm Hfa.aer.ad, 2 PUFF IH PRN Q4-6HRS PRN for wheezing, #1 INHALER 0 Refills Prov:JOSEWENDIGRZEGORZ Beckford [employer] 10/10/20 Tamsulosin Hcl (FLOMAX) 0.4 Mg Cap.er.24h, 0.4 MG PO DAILY, #30 Prov:KIMBERLEY GARZA MD 01/22/15 Cyclobenzaprine Hcl (CYCLOBENZAPRINE HCL) 10 Mg Tablet, 10 MG PO QHS, #30 Prov:KIMBERLEY GARZA MD 01/22/15 Acetaminophen (TYLENOL) 325 Mg Tablet, 650 MG PO PRN Q6HRS PRN for MILD PAIN / TEMP, #30 Prov:KIMBERLEY GARZA MD 01/22/15 Reported Medications Metoprolol Succinate (TOPROL XL) 50 Mg Tab.er.24h, 1 TAB PO DAILY, #30 TAB 5 Refills 12/04/15 Isosorbide Mononitrate (ISOSORBIDE MONONITRATE ER) 30 Mg Tab.er.24h, 1 TAB PO DAILY, #30 TAB 5 Refills 12/04/15 Aspirin (ASPIR 81) 81 Mg Tablet.dr, 1 TAB PO DAILY, #30 TAB 5 Refills LAST DOSE: 08/04/15 AM NEXT DOSE: 08/05/15 AM 08/01/15 Amlodipine Besylate (AMLODIPINE BESYLATE) 5 Mg Tablet, 5 MG PO DAILY, TAB LAST DOSE: 08/03/15 AM NEXT DOSE: 08/05/15 AM 07/29/15 Ferrous Sulfate (FERROUS SULFATE) 325 Mg Tablet, 1 TAB PO BID, #60 TAB 3 Refills LAST DOSE: 08/04/15 AM NEXT DOSE: 08/04/15 PM 07/29/15 Discontinued Reported Medications Clopidogrel Bisulfate (CLOPIDOGREL) 75 Mg Tablet, 1 TAB PO DAILY, #90 TAB 1 Refill LAST DOSE: 08/04/15 NEXT DOSE: 08/05/15 AM 08/01/15 Naproxen (NAPROXEN) 500 Mg Tablet.dr, 1 TAB PO PRN Q12HR PRN for PAIN, #60 TAB 2 Refills 07/29/15 Levothyroxine Sodium (LEVOTHYROXINE SODIUM) 50 Mcg Tablet, 1 TAB PO DAILY, #30 TAB 5 Refills LAST DOSE: 08/04/15 AM NEXT DOSE: 08/05/15 AM 07/29/15 Hydrocortisone (HYDROCORTISONE) 5 Mg Tablet, 5 MG PO BIDPCLD LAST DOSE: 08/04/15 PM NEXT DOSE: 08/04/15 EVENING 07/29/15 Hydrocortisone (HYDROCORTISONE) 10 Mg Tablet, 10 MG PO DAILY08 LAST DOSE: 08/04/15 AM NEXT DOSE: 08/05/15 AM 07/29/15 Discontinued Scripts Orphenadrine Citrate (ORPHENADRINE CITRATE) 100 Mg Tablet.er, 1 TAB PO BID, #14 TAB 0 Refills Prov:SAIRA SANCHEZ APRN 03/16/21 Prednisone (PREDNISONE) 50 Mg Tablet, 1 TAB PO DAILY for back pain, #5 TAB 0 Refills Prov:SAIRA SANCHEZ APRN 03/16/21 Lidocaine (Lidocaine PATCH ) 1 Each Adh..patch, 1 EACH TP DAILY for FOR LOCAL PAIN, #30 PATCH 0 Refills REMOVE AFTER 12 HOURS Prov:SAIRA SANCHEZ APRN 03/16/21 Prednisone (PREDNISONE) 20 Mg Tablet, 2 TAB PO DAILY for 4 Days, #8 TAB Start this prescription tomorrow, 01/21/21 Prov:SAIRA RIVERA 01/20/21 Lidocaine (Lidocaine PATCH ) 1 Each Adh..patch, 1 EACH TP DAILY for FOR LOCAL PAIN, #30 PATCH REMOVE AFTER 12 HOURS Prov:SAIRA RIVERA 01/20/21 Orphenadrine Citrate (ORPHENADRINE CITRATE) 100 Mg Tablet.er, 1 TAB PO BID PRN for MUSCLE PAIN, #14 TAB Prov:NICOLESAIRA Feliciano DO 01/20/21 Prednisone (PREDNISONE) 50 Mg Tablet, 1 TAB PO DAILY, #5 TAB Prov:JOEY MARIN DO 11/01/20 Prednisone (PREDNISONE) 50 Mg Tablet, 1 TAB PO DAILY, #5 TAB Prov:GRZEGORZ GREER [employer]ER 10/10/20 Amoxicillin/Potassium Clav (AUGMENTIN 875-125 TABLET) 1 Each Tablet, 1 TAB PO BID for 10 Days, #20 TAB 0 Refills Prov:GRZEGORZ GREER [employer] 10/10/20 Hydrocodone Bit/Acetaminophen (HYDROCODONE-APAP 5-325 ) 1 Tab Tablet, 0.5-1 TAB PO PRN Q6HRS PRN for PAIN, #10 TAB 0 Refills Prov:NICOLESAIRA Wiggins DO 09/15/20 Cephalexin (KEFLEX) 500 Mg Capsule, 1 CAP PO QID for 10 Days, #40 CAP Prov:RIVERASAIRA DO 09/15/20 Metronidazole (FLAGYL) 500 Mg Tablet, 1 TAB PO BID, #10 TAB Prov:LINDA ARTEAGA MD 12/08/15 Levofloxacin (LEVAQUIN) 500 Mg Tablet, 5 TAB PO DAILY, #5 TAB Prov:LINDA ARTEAGA MD 12/08/15 Potassium Chloride (K-Tab ER) 20 Meq Tablet.er, 40 MEQ PO DAILY, #7 TAB.SR Prov:LINDA ARTEAGA MD 12/08/15 Oxycodone/Apap 5-325 (PERCOCET 5-325 MG TABLET ) 1 Each Tablet, 1 TAB PO QID PRN for PAIN, #30 TAB Prov:ERIC FISCHER MD 08/01/15 [Fludrocortisone Acetate] 0.1 MG TABLET No Conflict Check, 0.1 MG PO DAILY, #30 Prov:JERRY VIDAL MD 01/29/15 [Carbidopa/Levodopa] 1 TAB TABLET No Conflict Check, 1 TAB PO TID Prov:KIMBERLEY GARZA MD 01/22/15 ROC ALSA MD Jun 08, 2021 11:51
--- NOTE | 2021-06-08 14:05 | NUR ---
Discharge Note: [place] Discharge instructions and discharge home medications reviewed with Patient and spouse and a copy given. All questions have been answered and understanding verbalized. The following instructions and handouts were given: discharge instructions, new prescriptions, education and follow up recommendations. Discontinued lines and drains: Peripheral IV discontinued intact. Patient discharged to Home w/services with Spouse via Wheelchair off unit by this RN.
== END 2021-06-08 14:05 | disposition home health service (06) | DRG 690 ==
LOC: ER 14:10 → 5 NORTH 17:05 → ER 19:47
PROVIDERS: ADMIT Internal Medicine; ATTEND Internal Medicine
DX: N30.00 Acute cystitis without hematuria (principal); E87.1 Hypo-osmolality and hyponatremia; I11.0 Hypertensive heart disease with heart failure; E03.9 Hypothyroidism, unspecified; E86.9 Volume depletion, unspecified; F03.90 Unspecified dementia, unspecified severity, without behavioral disturbance, psychotic disturbance, mood disturbance, and anxiety; G89.29 Other chronic pain; I25.10 Atherosclerotic heart disease of native coronary artery without angina pectoris; I50.9 Heart failure, unspecified; Z20.822 Contact with and (suspected) exposure to COVID-19; M11.262 Other chondrocalcinosis, left knee; R62.7 Adult failure to thrive; I95.9 Hypotension, unspecified; M54.50 Low back pain, unspecified; M79.605 Pain in left leg; R53.81 Other malaise; Z83.3 Family history of diabetes mellitus; Z87.891 Personal history of nicotine dependence; Z91.14 Patient's other noncompliance with medication regimen; Z68.23 Body mass index [BMI] 23.0-23.9, adult
CPT/HCPCS: 36415; 70450; 71045; 72125; 72128; 72131; 73562; 80048; 80053; 80307; 81001; 83735; 83880; 84436; 84443; 84484; 85007; 85025; 87077; 87086; 87426; 93005; 96361; 96374; J0696; J3475; J7030; U0003; 97110-GO; 97116-GP; 97535-GO; 99285-25; G0378